=== PATIENT | female | born 1960 | race Caucasian/White ===

== ENCOUNTER 2016-07-20 09:27 | Observation (INO) ==
[2016-07-20] MEDS ORDERED: Naloxone 0.4 MG/ML INJ IVP PRN (11:09)
--- NOTE | 2016-07-20 12:41 | Internal Med History&Physical ---
Date of Encounter: 07/20/16 Time of Encounter: 12:39 Assessment and Plan (1) Cellulitis Current visit: No Status: Acute History of recurrent cellulitis given morbid obesity and chronic lymphedema. Has been started on IV vancomycin from [place], we will continue vancomycin and started on IV Zosyn empirically. Blood cultures and wound cultures has been sent, follow culture results. We will consult wound care, keep foot elevated. DVt prophylaxis. Qualifiers: Site of cellulitis: extremity Site of cellulitis of extremity: lower extremity Laterality: right Qualified Code(s): L03.115 - Cellulitis of right lower limb (2) Diabetes Current visit: No Status: Chronic will start on sliding correctional insulin Qualifiers: Diabetes mellitus type: type 2 Diabetes mellitus complication status: with kidney complications Diabetes mellitus complication detail: with chronic kidney disease Diabetes mellitus termite exterminator insulin use: unspecified long-term insulin use status Chronic kidney disease stage: stage 3 (moderate) Qualified Code(s): E11.22 - Type 2 diabetes mellitus with diabetic chronic kidney disease; N18.3 - Chronic kidney disease, stage 3 (moderate) (3) HTN (hypertension) Current visit: No Status: Chronic Continue home medication. Qualifiers: Hypertension type: essential hypertension Qualified Code(s): I10 - Essential (primary) hypertension (4) Morbid obesity Current visit: No Status: Chronic Qualifiers: Obesity type: due to excess calories Qualified Code(s): E66.01 - Morbid ( severe) obesity due to excess calories Internal Medicine - H&P: HPI Chief complaint: RIGHT LEG SWELLING AND REDNESS Admitted From: Intrahospital Transfer Plans for Post Hospital Care: Home History of present illness: Ms. Blanton is a 56 year old female was transferred from [facility] for right leg cellulitis. Patient has history of chronic lymphedema with swelling of the right leg and has multiple recurrent cellulitis with previous hospital admissions requiring IV antibiotics . Ms Blanton reports a 3 day history of increased pain and redness and swelling in her right leg. The leg is always swollen but it is a bit more so and at stuff only a brighter red and more painful. No obvious trauma to the leg. She suffers from chronic lymphedema. She has had some chills but no obvious fevers. No nausea or vomiting or muscle aches. She was seen at [place] and was started on vancomycin. She has history of positive wound cultures with staph epidermidis. She reports that she is normally mobile at baseline at home. Past Med Surg Social Fam HX - Past Medical History Medical history: COPD, diabetes, hyperlipidemia, hypertension, thyroid disease, other Psychiatric history: no psych history - Past Surgical History Surgical History: hysterectomy - Social History Smoking Status: Never smoker Smokeless Tobacco Status: No Alcohol use: none Drug use: none - Family History Mother Adopted: No Family Member Ethnicity: Non- Living Status: Hx Family Cardiac Disorders: Yes (Two stents) Hx Family Respiratory Disorders: Yes Hx Family Cancer: Yes Hx Family Endocrine Disorder: No Hx Family Neuromuscular Disorders: No Hx Family Neurologic Disorders: No Hx Family HEENT Disorders: No Hx Family Autoimmune Disorders: No Father Living Status: Hx Family Cardiac Disorders: Yes (HX TRIPLE BYPASS) Hx Family Respiratory Disorders: Yes Hx Family Endocrine Disorder: Yes Internal Medicine - H&P: Meds Carvedilol [Coreg] 6.25 mg PO BIDWM 01/22/15 [History] Cyanocobalamin (Vitamin B-12) [Vitamin B12] 1,000 mcg PO DAILY #0 01/22/15 [ History] Levothyroxine [Synthroid] 50 mcg PO DAILY 01/22/15 [History] Potassium Chloride [K-Tab ER] 10 meq PO DAILY #0 01/22/15 [History] Albuterol Sulfate [Proair Hfa] 2 puff IH Q6H PRN 11/12/15 [History] Allopurinol [Zyloprim 100 MG] 100 mg PO BID 11/12/15 [History] Ferrous Sulfate 325 mg PO TID 11/12/15 [History] Metformin [Glucophage] 1,000 mg PO BIDWM 01/29/16 [History] Butalb/Acetaminophen/Caffeine [Fioricet 50-300-40 mg Capsule] 1 each PO Q6HR PRN #10 capsule 03/15/16 [Rx] Atorvastatin [Lipitor] 10 mg PO DAILY 07/20/16 [History] Docusate [Colace] 100 mg PO DAILY PRN 07/20/16 [History] Furosemide [Lasix] 40 mg PO DAILY 07/20/16 [History] Allergies Hydromorphone [From Dilaudid] Allergy (Verified 03/14/16 23:13) Hallucinating All Systems PM: A 10-system review of systems was performed and is negative for pertinent findings except as documented above in the HPI. - Constitutional Constitutional: no chills, no fever(s), no night sweats - EENT Eyes: no change in vision, no discharge, no pain, no photophobia Ears: no ear discharge, no ear pain, no tinnitus Nose, mouth and throat: no dysphagia, no nasal discharge, no neck pain, no sore throat - Cardiovascular Cardiovascular ROS IM: no chest pain, no diaphoresis, no dyspnea, no lightheadedness, no palpitations, no syncope - Respiratory Respiratory: no cough, no dyspnea, no wheezing, no excessive phlegm production - Gastrointestinal Gastrointestinal: no abdominal pain, no diarrhea, no hematemesis, no hematochezia, no melena, no nausea, no vomiting - Genitourinary Genitourinary: no change in urinary stream, no dysuria, no flank pain, no hematuria - Musculoskeletal Musculoskeletal ROS IM: no numbness, no tingling - Constitutional General appearance: Present: A&O X 3, no acute distress Exam: Neck supple. Chest bilateral clear, no added sounds. CVS S1-S2, no murmurs rubs or gallops. Abdomen soft, nontender, bowel sounds are present. Extremities bilateral LOWER LEG SWELLING and redness, swelling and redness present on the right leg extending to the upper thigh and the medial aspect. Also has some open wounds WITH blisters, tenderness on palpation, pulses difficult to palpate due to swelling
[2016-07-20] MEDS ORDERED: Dextrose Gel 15 GM PO PRN ×2 (12:46)
[2016-07-20] MEDS ORDERED: D5% in Water 1,000 ML IVC PRN (12:46)
[2016-07-20] MEDS ORDERED: *HR* Dextrose 50 % in Water (Syg) 50 ML SYRINGE IVP PRN (12:46)
[2016-07-20] MEDS: Insulin LISPRO 300 UNITS/3 ML VIAL SQ SCH ×3 (14:32→21:14)
[2016-07-20] MEDS: Furosemide 40 MG/4 ML VIAL IVP SCH (14:32)
[2016-07-20] MEDS: Piperacillin/Tazobactam 3.375 GM in D5% in Water (Mini-Bag+) 100 ML IVPB SCH ×2 (14:33→17:35)
[2016-07-20] MEDS: *HR* Heparin 5,000 UNIT/ML VIAL SQ SCH (16:58)
[2016-07-20] MEDS ORDERED: Vancomycin 1,000 MG in D5% in Water 250 ML IVPB SCH (18:00)
[2016-07-20] MEDS: Acetaminophen 325 MG TABLET PO PRN (18:18)
[2016-07-20] MEDS: Vancomycin 2,000 MG in D5% in Water 500 ML IVPB SCH (23:20)
[2016-07-20] MEDS: Ipratropium/Albuterol Neb 3 ML IH PRN (23:43)
[2016-07-21] MEDS: Piperacillin/Tazobactam 3.375 GM in D5% in Water (Mini-Bag+) 100 ML IVPB SCH ×3 (01:44→15:58)
[2016-07-21] MEDS ORDERED: Dextromethorphan Polistrx(12h) 30 MG/5 ML UDC PO ONE (01:53)
[2016-07-21] MEDS ORDERED: Saline Nasal Spray 44 ML BOTTLE NS PRN (01:59)
[2016-07-21] MEDS: Fluticasone Propionate Nasal 50 MCG/SPRAY BOTTLE NS SCH ×2 (02:32→20:50)
[2016-07-21] MEDS: Benzonatate 100 MG CAPSULE PO PRN ×3 (02:57→22:49)
[2016-07-21 05:04] LABS: Basophils # 0.1 K/mcL (0.0-0.2); Basophils % 0.7 %; Eosinophils # 0.1 K/mcL (0.0-0.6); Eosinophils % 1.5 %; Hematocrit 28.5 % (35.3-44.9); Hemoglobin 8.9 g/dL (11.5-15.4); Immature Granulocytes % 3.9 % (0-4); Lymphocytes # 0.8 K/mcL (0.6-4.6); Lymphocytes % 10.8 %; Mean Corpuscular HGB Conc 31.2 g/dL (31.6-35.5); Mean Corpuscular Hemoglobin 26.8 pg (28.0-33.3); Mean Corpuscular Volume 85.8 fL (83.0-100.0); Mean Platelet Volume 9.2 fL (9.4-12.4); Monocytes # 1.1 K/mcL (0.0-1.3); Monocytes % 15.3 %; Neutrophils # 4.9 K/mcL (1.6-8.9); Nucleated Red Blood Cells 0.3 /100 WBC (0); Platelet Count 236 K/mcL (140-400); Red Blood Count 3.32 M/mcL (3.82-4.97); Red Cell Distribution Width 16.1 % (11.5-14.5); Segmented Neutrophils % 67.8 %
[2016-07-21 05:11] LABS: BUN/Creatinine Ratio 15 (6-26); Blood Urea Nitrogen 16 mg/dL (7-20); Carbon Dioxide 26 mEq/L (19-29); Chloride 97 mEq/L (98-109); Glucose 175 mg/dL (70-99); Osmolality,Calculated 283 (280-300); Potassium 3.4 mEq/L (3.5-4.5); Sodium 134 mEq/L (136-145); eGFR For African Americans > 60 (> 60); eGFR For Non-African Americans 51 (> 60)
[2016-07-21] MEDS: *HR* Heparin 5,000 UNIT/ML VIAL SQ SCH ×2 (06:11→17:38)
[2016-07-21] MEDS: Levothyroxine 25 MCG TABLET PO SCH (06:12)
[2016-07-21] MEDS: Furosemide 40 MG/4 ML VIAL IVP SCH (08:01)
[2016-07-21] MEDS: Insulin LISPRO 300 UNITS/3 ML VIAL SQ SCH ×4 (08:01→20:44)
[2016-07-21] MEDS: Acetaminophen 325 MG TABLET PO PRN ×2 (09:33→22:49)
[2016-07-21] MEDS: Vancomycin 2,000 MG in D5% in Water 500 ML IVPB SCH ×2 (12:14→23:41)
[2016-07-21] MEDS ORDERED: Baclofen 10 MG TABLET PO PRN (12:24)
--- NOTE | 2016-07-21 15:13 | Internal Med Progress Note ---
Date of Encounter: 07/21/16 Time of Encounter: 15:10 - Assessment and plan (1) Cellulitis Current Visit: Yes Status: Acute Assessment and plan: Cellulitis involving the Right lower extremity. On IV vancomycin and Zosyn. No significant improvement. Wound care. Foot elevation. Moderate risk for complications including sepsis. Qualifiers: Site of cellulitis: extremity Site of cellulitis of extremity: lower extremity Laterality: left Qualified Code(s): L03.116 - Cellulitis of left lower limb (2) Diabetes Current Visit: Yes Status: Chronic Assessment and plan: Blood sugars are slightly elevated. Will add long-acting insulin. Qualifiers: Diabetes mellitus type: type 2 Diabetes mellitus complication status: with kidney complications Diabetes mellitus complication detail: with chronic kidney disease Diabetes mellitus intermediate frame tender insulin use: unspecified half-way insulin use status Chronic kidney disease stage: stage 3 (moderate) Qualified Code(s): E11.22 - Type 2 diabetes mellitus with diabetic chronic kidney disease; N18.3 - Chronic kidney disease, stage 3 (moderate) (3) HTN (hypertension) Current Visit: Yes Status: Chronic Assessment and plan: On carvedilol. Blood pressure was elevated this morning. Improving now. Qualifiers: Hypertension type: essential hypertension Qualified Code(s): I10 - Essential (primary) hypertension (4) Morbid obesity Current Visit: No Status: Chronic Qualifiers: Obesity type: due to excess calories Qualified Code(s): E66.01 - Morbid ( severe) obesity due to excess calories - Subjective Interval history: Patient continues to have redness and swelling in her right lower extremity with increased blisters formation. Had low-grade fever with a MAXIMUM TEMPERATURE of 100 last night. - Constitutional Vitals: Temp Pulse Resp BP Pulse Ox 99.0 F 86 18 137/72 94 07/21/16 11:45 07/21/16 11:45 07/21/16 11:45 07/21/16 11:45 07/21/16 11:45 General appearance: Present: cooperative, A&O X 3, morbidly obese, no acute distress, answers questions appropriately - Neck Neck exam general surgery: Present: supple, trachea midline. Absent: lymphadenopathy - Respiratory Respiratory exam: Present: CTAB. Absent: accessory muscle use, rales, rhonchi, wheezes - Cardiovascular Cardiovascular exam: Present: RRR, +S1, +S2. Absent: diastolic murmur, gallop, rubs, systolic murmur - GI/Abdominal GI/Abdominal exam: Present: normal bowel sounds, soft, no peritoneal signs. Absent: distended, tenderness - Extremities Exam Extremities exam: Present: warm, radial pulses palpable and symetrical. Absent : calf tenderness, cyanotic, pedal edema Additional comments: Circumferential cellulitis involving the right lower extremity with multiple blisters extending from the foot up to the knee on the right side. There is also erythema involving the posterior surface of the right thigh. - Neurological Exam Neurological exam: Present: alert, CN II-XII intact, oriented X3, no focal deficits. Absent: facial droop, speech deficit - Skin Skin exam: Present: dry, erythema (As described above), intact Internal Medicine: Result - Labs CBC & Chem 7: 07/21/16 04:44 07/21/16 04:44 Labs: Short CBC 07/21/16 Range/Units 04:44 WBC 7.2 (4.3-11.1) K/mcL Hgb 8.9 L (11.5-15.4) g/dL Hct 28.5 L (35.3-44.9) % Plt Count 236 (140-400) K/mcL Neutrophils # 4.9 (1.6-8.9) K/mcL BMP 07/21/16 04:44 Sodium 134 L Potassium 3.4 L Chloride 97 L Carbon Dioxide 26 BUN 16 Creatinine 1.10 Glucose 175 H Calcium 9.0 Consult Discharge Plan - Plan Referrals: NO,PCP [Primary Care Provider] - - Attending Attestation This document has been at least partially created by Subtext recognition technology by Dr. Hinds. Errors in grammar, wording or other phrases may exist. If errors are found after the documentation is signed, they will be addressed individually in the addendum section of this document when appropriate.
[2016-07-21] MEDS ORDERED: Insulin DETEMIR 100 UNIT/ML X5UNITS SQ SCH (21:00)
[2016-07-22] MEDS: Piperacillin/Tazobactam 3.375 GM in D5% in Water (Mini-Bag+) 100 ML IVPB SCH ×4 (00:22→23:52)
[2016-07-22] MEDS ORDERED: Ketorolac 30 MG/ML VIAL IVP ONE (02:54)
[2016-07-22 05:18] LABS: Basophils # 0.1 K/mcL (0.0-0.2); Basophils % 1.1 %; Eosinophils # 0.1 K/mcL (0.0-0.6); Eosinophils % 1.8 %; Hematocrit 30.8 % (35.3-44.9); Hemoglobin 9.2 g/dL (11.5-15.4); Immature Granulocytes % 5.9 % (0-4); Lymphocytes # 0.9 K/mcL (0.6-4.6); Lymphocytes % 12.9 %; Mean Corpuscular HGB Conc 29.9 g/dL (31.6-35.5); Mean Corpuscular Hemoglobin 26.1 pg (28.0-33.3); Mean Corpuscular Volume 87.5 fL (83.0-100.0); Mean Platelet Volume 9.3 fL (9.4-12.4); Monocytes # 0.8 K/mcL (0.0-1.3); Monocytes % 11.5 %; Neutrophils # 4.4 K/mcL (1.6-8.9); Nucleated Red Blood Cells 0.3 /100 WBC (0); Platelet Count 284 K/mcL (140-400); Red Blood Count 3.52 M/mcL (3.82-4.97); Red Cell Distribution Width 16.1 % (11.5-14.5); Segmented Neutrophils % 66.8 %
[2016-07-22 05:23] LABS: BUN/Creatinine Ratio 16 (6-26); Blood Urea Nitrogen 17 mg/dL (7-20); Carbon Dioxide 30 mEq/L (19-29); Chloride 99 mEq/L (98-109); Glucose 143 mg/dL (70-99); Osmolality,Calculated 288 (280-300); Potassium 3.3 mEq/L (3.5-4.5); Sodium 137 mEq/L (136-145); eGFR For African Americans > 60 (> 60); eGFR For Non-African Americans 53 (> 60)
[2016-07-22] MEDS: *HR* Heparin 5,000 UNIT/ML VIAL SQ SCH ×2 (05:36→17:31)
[2016-07-22] MEDS: Levothyroxine 25 MCG TABLET PO SCH (05:36)
[2016-07-22 05:50] LABS: Platelet Estimate Normal (Normal)
[2016-07-22] MEDS: Insulin LISPRO 300 UNITS/3 ML VIAL SQ SCH ×4 (08:39→20:41)
[2016-07-22] MEDS: Furosemide 40 MG/4 ML VIAL IVP SCH (08:40)
[2016-07-22] MEDS: Acetaminophen 325 MG TABLET PO PRN ×2 (10:40→18:23)
[2016-07-22] MEDS: Vancomycin 1,750 MG in D5% in Water 500 ML IVPB SCH (14:53)
--- NOTE | 2016-07-22 15:06 | Internal Med Progress Note ---
Date of Encounter: 07/22/16 Time of Encounter: 10:15 - Assessment and plan (1) Cellulitis Current Visit: Yes Status: Acute Assessment and plan: Clinically improving. Continue IV antibiotics. Wound care consult appreciated. We will follow recommendations. Moderate risk for complications. Qualifiers: Site of cellulitis: extremity Site of cellulitis of extremity: lower extremity Laterality: left Qualified Code(s): L03.116 - Cellulitis of left lower limb (2) Diabetes Current Visit: Yes Status: Chronic Assessment and plan: Improving control. Will increase Levemir dosage to 10 units Qualifiers: Diabetes mellitus type: type 2 Diabetes mellitus complication status: with kidney complications Diabetes mellitus complication detail: with chronic kidney disease Diabetes mellitus adjunct faculty for medical terminology insulin use: unspecified correction insulin use status Chronic kidney disease stage: stage 3 (moderate) Qualified Code(s): E11.22 - Type 2 diabetes mellitus with diabetic chronic kidney disease; N18.3 - Chronic kidney disease, stage 3 (moderate) (3) HTN (hypertension) Current Visit: Yes Status: Chronic Assessment and plan: Blood pressure is elevated intermittently. On carvedilol and Lasix. If this persists, will increase carvedilol dosage Qualifiers: Hypertension type: essential hypertension Qualified Code(s): I10 - Essential (primary) hypertension (4) Morbid obesity Current Visit: No Status: Chronic Qualifiers: Obesity type: due to excess calories Qualified Code(s): E66.01 - Morbid ( severe) obesity due to excess calories - Subjective Interval history: Patient feels her cellulitis is improving today. She has not had any fever overnight. Her pain is improving and the right lower extremity. No nausea or vomiting. No adverse reaction to antibiotics the patient is receiving. - Constitutional Vitals: Temp Pulse Resp BP Pulse Ox 98.3 F 94 18 154/78 95 07/22/16 14:29 07/22/16 14:29 07/22/16 14:29 07/22/16 14:29 07/22/16 14:29 General appearance: Present: cooperative, A&O X 3, morbidly obese, no acute distress, answers questions appropriately - Respiratory Respiratory exam: Present: CTAB. Absent: accessory muscle use, rales, rhonchi, wheezes - Cardiovascular Cardiovascular exam: Present: RRR, +S1, +S2. Absent: diastolic murmur, gallop, rubs, systolic murmur - GI/Abdominal GI/Abdominal exam: Present: normal bowel sounds, soft, no peritoneal signs. Absent: distended, tenderness - Extremities Exam Extremities exam: Present: warm, radial pulses palpable and symetrical. Absent : calf tenderness, cyanotic, pedal edema Additional comments: right lower extremity cellulitis slightly improved especially in the right foot. Blisters appear to be somewhat more organized and decreasing in size. Cellulitis involving the right posterior thigh appears to be stable - Neurological Exam Neurological exam: Present: alert, oriented X3, no focal deficits. Absent: facial droop, speech deficit - Skin Skin exam: Present: dry, intact Internal Medicine: Result - Labs CBC & Chem 7: 07/22/16 03:54 07/22/16 03:54 Labs: Short CBC 07/22/16 Range/Units 03:54 WBC 6.6 (4.3-11.1) K/mcL Hgb 9.2 L (11.5-15.4) g/dL Hct 30.8 L (35.3-44.9) % Plt Count 284 (140-400) K/mcL Neutrophils # 4.4 (1.6-8.9) K/mcL BMP 07/22/16 03:54 Sodium 137 Potassium 3.3 L Chloride 99 Carbon Dioxide 30 H BUN 17 Creatinine 1.07 Glucose 143 H Calcium 9.0 Consult Discharge Plan - Plan Referrals: NO,PCP [Primary Care Provider] - - Attending Attestation This document has been at least partially created by [email or web address] recognition technology by Dr. Hinds. Errors in grammar, wording or other phrases may exist. If errors are found after the documentation is signed, they will be addressed individually in the addendum section of this document when appropriate.
[2016-07-22] MEDS: Insulin DETEMIR 100 UNIT/ML X5UNITS SQ SCH (20:40)
[2016-07-22] MEDS: Fluticasone Propionate Nasal 50 MCG/SPRAY BOTTLE NS SCH (20:41)
[2016-07-22] MEDS: Benzonatate 100 MG CAPSULE PO PRN (23:51)
[2016-07-23 02:50] LABS: Adenovirus Not Detected (Not Detect); Bordetella Pertussis Not Detected (Not Detect); Chlamydophila pneumoniae Not Detected (Not Detect); Coronavirus 229E Not Detected (Not Detect); Coronavirus HKU1 Not Detected (Not Detect); Coronavirus NL63 Not Detected (Not Detect); Coronavirus OC43 Not Detected (Not Detect); Human Metapneumovirus Not Detected (Not Detect); Human Rhinovirus/Enterovirus Not Detected (Not Detect); Influenza A Subtype 2009 H1 Not Detected (Not Detect); Influenza A Untypeable Not Detected (Not Detect); Influenza B ***DETECTED*** (Not Detect); Mycoplasma pneumoniae Not Detected (Not Detect); Parainfluenza Virus 1 Not Detected (Not Detect); Parainfluenza Virus 2 Not Detected (Not Detect); Parainfluenza Virus 3 Not Detected (Not Detect); Parainfluenza Virus 4 Not Detected (Not Detect); Respiratory Syncytial Virus Not Detected (Not Detect)
[2016-07-23 03:04] LABS: Eosinophils # 0.2 K/mcL (0.0-0.6); Hematocrit 31.2 % (35.3-44.9); Hemoglobin 9.4 g/dL (11.5-15.4); Mean Corpuscular HGB Conc 30.1 g/dL (31.6-35.5); Mean Corpuscular Hemoglobin 26.5 pg (28.0-33.3); Mean Corpuscular Volume 87.9 fL (83.0-100.0); Mean Platelet Volume 8.9 fL (9.4-12.4); Nucleated Red Blood Cells 0.5 /100 WBC (0); Platelet Count 296 K/mcL (140-400); Red Blood Count 3.55 M/mcL (3.82-4.97); Red Cell Distribution Width 16.2 % (11.5-14.5)
[2016-07-23 03:15] LABS: BUN/Creatinine Ratio 18 (6-26); Blood Urea Nitrogen 19 mg/dL (7-20); Calcium 9.1 mg/dL (8.6-10.8); Carbon Dioxide 31 mEq/L (19-29); Chloride 99 mEq/L (98-109); Glucose 173 mg/dL (70-99); Osmolality,Calculated 292 (280-300); Potassium 3.8 mEq/L (3.5-4.5); Sodium 138 mEq/L (136-145); eGFR For African Americans > 60 (> 60); eGFR For Non-African Americans 54 (> 60)
[2016-07-23 04:24] LABS: Lymphocytes # 0.8 K/mcL (0.6-4.6); Monocytes # 0.7 K/mcL (0.0-1.3); Neutrophils # 4.1 K/mcL (1.6-8.9)
[2016-07-23 04:25] LABS: Platelet Estimate Normal (Normal)
[2016-07-23] MEDS: *HR* Heparin 5,000 UNIT/ML VIAL SQ SCH ×2 (06:45→18:09)
[2016-07-23] MEDS: Levothyroxine 25 MCG TABLET PO SCH (06:45)
--- NOTE | 2016-07-23 09:53 | Internal Med Progress Note ---
Date of Encounter: 07/23/16 Time of Encounter: 09:20 - Assessment and plan (1) Cellulitis Current Visit: Yes Status: Acute Assessment and plan: Continue current antibiotics and local wound care. Clinically getting better. Moderate risk for complications. Qualifiers: Site of cellulitis: extremity Site of cellulitis of extremity: lower extremity Laterality: left Qualified Code(s): L03.116 - Cellulitis of left lower limb (2) Diabetes Current Visit: Yes Status: Chronic Assessment and plan: Fairly controlled. No changes in insulin regimen at this time. Qualifiers: Diabetes mellitus type: type 2 Diabetes mellitus complication status: with kidney complications Diabetes mellitus complication detail: with chronic kidney disease Diabetes mellitus exterminator termite insulin use: unspecified fpc insulin use status Chronic kidney disease stage: stage 3 (moderate) Qualified Code(s): E11.22 - Type 2 diabetes mellitus with diabetic chronic kidney disease; N18.3 - Chronic kidney disease, stage 3 (moderate) (3) HTN (hypertension) Current Visit: Yes Status: Chronic Assessment and plan: Blood pressure is well controlled. Qualifiers: Hypertension type: essential hypertension Qualified Code(s): I10 - Essential (primary) hypertension (4) Morbid obesity Current Visit: No Status: Chronic Qualifiers: Obesity type: due to excess calories Qualified Code(s): E66.01 - Morbid ( severe) obesity due to excess calories (5) Influenza B Current Visit: Yes Status: Acute Assessment and plan: Patient has positive influenza B. She has been started on Tamiflu overnight. We will continue the same to complete treatment course. - Subjective Interval history: Currently sitting up in chair. Continues to have cough. Concerned that her blisters do not seem to be improving much. Reports no fever or chills or night sweats. - Constitutional Vitals: Temp Pulse Resp BP Pulse Ox 98.5 F 90 20 130/69 93 07/23/16 06:27 07/23/16 06:27 07/23/16 06:27 07/23/16 06:27 07/23/16 06:27 General appearance: Present: cooperative, A&O X 3, morbidly obese, no acute distress, answers questions appropriately - Respiratory Respiratory exam: Present: CTAB. Absent: accessory muscle use, rales, rhonchi, wheezes - Cardiovascular Cardiovascular exam: Present: RRR, +S1, +S2. Absent: diastolic murmur, gallop, rubs, systolic murmur - GI/Abdominal GI/Abdominal exam: Present: normal bowel sounds, soft, no peritoneal signs. Absent: distended, tenderness - Extremities Exam Extremities exam: Present: warm, radial pulses palpable and symetrical. Absent : calf tenderness, cyanotic, pedal edema Additional comments: Right lower extremity cellulitis continues to improve. Erythema is less prominent right now. Patient's blisters remain stable and does not appear that the patient is developing any new blisters. Stasis dermatitis and lymphedema present in the left lower extremity - Neurological Exam Neurological exam: Present: alert, oriented X3, no focal deficits. Absent: facial droop, speech deficit Internal Medicine: Result - Labs CBC & Chem 7: 07/23/16 01:59 07/23/16 01:59 Labs: Short CBC 07/23/16 Range/Units 01:59 WBC 5.9 (4.3-11.1) K/mcL Hgb 9.4 L (11.5-15.4) g/dL Hct 31.2 L (35.3-44.9) % Plt Count 296 (140-400) K/mcL Neutrophils # 4.1 (1.6-8.9) K/mcL BMP 07/23/16 01:59 Sodium 138 Potassium 3.8 Chloride 99 Carbon Dioxide 31 H BUN 19 Creatinine 1.05 Glucose 173 H Calcium 9.1 Consult Discharge Plan - Plan Referrals: NO,PCP [Primary Care Provider] - - Attending Attestation This document has been at least partially created by [employer] recognition technology by Dr. Hinds. Errors in grammar, wording or other phrases may exist. If errors are found after the documentation is signed, they will be addressed individually in the addendum section of this document when appropriate.
[2016-07-23] MEDS: Furosemide 40 MG/4 ML VIAL IVP SCH (10:21)
[2016-07-23] MEDS: Piperacillin/Tazobactam 3.375 GM in D5% in Water (Mini-Bag+) 100 ML IVPB SCH ×2 (10:21→18:08)
[2016-07-23] MEDS: Insulin LISPRO 300 UNITS/3 ML VIAL SQ SCH ×4 (10:22→20:32)
[2016-07-23] MEDS: Vancomycin 1,750 MG in D5% in Water 500 ML IVPB SCH (15:16)
[2016-07-23] MEDS: Acetaminophen 325 MG TABLET PO PRN (15:49)
[2016-07-23] MEDS: Ipratropium/Albuterol Neb 3 ML IH PRN (16:03)
[2016-07-23] MEDS: Benzonatate 100 MG CAPSULE PO PRN (18:09)
[2016-07-23] MEDS: Fluticasone Propionate Nasal 50 MCG/SPRAY BOTTLE NS SCH (20:32)
[2016-07-23] MEDS: Insulin DETEMIR 100 UNIT/ML X5UNITS SQ SCH (20:33)
[2016-07-24] MEDS: Piperacillin/Tazobactam 3.375 GM in D5% in Water (Mini-Bag+) 100 ML IVPB SCH ×4 (00:34→23:30)
[2016-07-24] MEDS: Levothyroxine 25 MCG TABLET PO SCH (05:54)
[2016-07-24] MEDS: *HR* Heparin 5,000 UNIT/ML VIAL SQ SCH ×2 (05:54→16:37)
[2016-07-24] MEDS: Furosemide 40 MG/4 ML VIAL IVP SCH (08:13)
[2016-07-24] MEDS: Insulin LISPRO 300 UNITS/3 ML VIAL SQ SCH ×4 (08:17→20:03)
[2016-07-24] MEDS: Benzonatate 100 MG CAPSULE PO PRN (10:34)
--- NOTE | 2016-07-24 12:59 | Internal Med Progress Note ---
Date of Encounter: 07/24/16 Time of Encounter: 08:45 - Assessment and plan (1) Cellulitis Current Visit: Yes Status: Acute Assessment and plan: Continue current antibiotics. Clinically getting better. Wound care. Leg elevation. Physical therapy evaluated patient and recommended placement to skilled rehabilitation. sawmill worker working on placement. Qualifiers: Site of cellulitis: extremity Site of cellulitis of extremity: lower extremity Laterality: left Qualified Code(s): L03.116 - Cellulitis of left lower limb (2) Diabetes Current Visit: Yes Status: Chronic Assessment and plan: Better controlled. Continue current insulin regimen. Qualifiers: Diabetes mellitus type: type 2 Diabetes mellitus complication status: with kidney complications Diabetes mellitus complication detail: with chronic kidney disease Diabetes mellitus correction insulin use: unspecified correction insulin use status Chronic kidney disease stage: stage 3 (moderate) Qualified Code(s): E11.22 - Type 2 diabetes mellitus with diabetic chronic kidney disease; N18.3 - Chronic kidney disease, stage 3 (moderate) (3) HTN (hypertension) Current Visit: Yes Status: Chronic Assessment and plan: Blood pressure is well controlled Qualifiers: Hypertension type: essential hypertension Qualified Code(s): I10 - Essential (primary) hypertension (4) Morbid obesity Current Visit: No Status: Chronic Qualifiers: Obesity type: due to excess calories Qualified Code(s): E66.01 - Morbid ( severe) obesity due to excess calories (5) Influenza B Current Visit: Yes Status: Acute Assessment and plan: On Tamiflu. - Subjective Interval history: Continues to have cough without any sputum production. Redness in right lower extremity is improving Still has blisters. - Constitutional Vitals: Temp Pulse Resp BP Pulse Ox 100.4 F H 84 18 127/61 94 07/24/16 11:41 07/24/16 11:41 07/24/16 11:41 07/24/16 11:41 07/24/16 11:41 General appearance: Present: cooperative, A&O X 3, morbidly obese, no acute distress, answers questions appropriately - Respiratory Respiratory exam: Present: CTAB. Absent: accessory muscle use, rales, rhonchi, wheezes - Cardiovascular Cardiovascular exam: Present: RRR, +S1, +S2. Absent: diastolic murmur, gallop, rubs, systolic murmur - GI/Abdominal GI/Abdominal exam: Present: normal bowel sounds, soft, no peritoneal signs. Absent: distended, tenderness - Extremities Exam Extremities exam: Present: pedal edema, warm, radial pulses palpable and symetrical. Absent: calf tenderness, cyanotic Additional comments: Erythema and lymphedema involving both lower extremities. Cellulitis improving the right lower extremity with blisters still present but no new ones developing. - Neurological Exam Neurological exam: Present: CN II-XII intact, oriented X3, no focal deficits. Absent: facial droop, speech deficit Internal Medicine: Result - Labs CBC & Chem 7: 07/23/16 01:59 07/23/16 01:59 Consult Discharge Plan - Plan Referrals: NO,PCP [Non-Partnered Physician] - - Attending Attestation This document has been at least partially created by [employer] recognition technology by Dr. Hinds. Errors in grammar, wording or other phrases may exist. If errors are found after the documentation is signed, they will be addressed individually in the addendum section of this document when appropriate.
[2016-07-24] MEDS: Vancomycin 1,750 MG in D5% in Water 500 ML IVPB SCH (14:51)
[2016-07-24] MEDS: Ipratropium/Albuterol Neb 3 ML IH PRN ×3 (15:14→23:20)
[2016-07-24] MEDS: GuaiFENesin Liq 200 MG/10 ML UDC PO SCH ×2 (16:36→23:30)
[2016-07-24] MEDS ORDERED: Levalbuterol Neb 1.25 MG/3 ML IH SCH (20:00)
[2016-07-24] MEDS: Insulin DETEMIR 100 UNIT/ML X5UNITS SQ SCH (20:10)
[2016-07-24] MEDS: Fluticasone Propionate Nasal 50 MCG/SPRAY BOTTLE NS SCH (20:10)
[2016-07-24 20:50] LABS: ABG Base Excess 6.8 mEq/L (-2.0 to 3.0); ABG HCO3 34.5 mEQ/L (21-27); ABG Oxygen Saturation 93 % (95-98); ABG PCO2 67 mmHg (35-45); ABG PH 7.32 pH Units (7.32-7.45); ABG PO2 74 mmHg (85-104); ABG TCO2 36.6 mEq/L (20-26); Blood Gas FiO2 32 %
[2016-07-24 20:50] LABS: Magnesium 1.8 mg/dL (1.6-2.6); Phosphorous 2.5 mg/dL (2.3-4.7)
[2016-07-24] MEDS ORDERED: Magnesium Sulfate 1 GM in D5% in Water 100 ML IVPB ONE (21:04)
[2016-07-24] MEDS ORDERED: Calcium Gluconate 1,000 MG in D5% in Water 100 ML IVPB ONE (21:05)
[2016-07-24] MEDS: Levalbuterol Neb 1.25 MG/3 ML IH SCH ×2 (21:59→23:20)
[2016-07-24] MEDS: Ipratropium Neb 0.5 MG NEBULIZER IH SCH ×2 (21:59→23:20)
[2016-07-24] MEDS: methylPREDNISolone 125 MG/2 ML VIAL IVP SCH (23:30)
[2016-07-25] MEDS ORDERED: methylPREDNISolone 125 MG/2 ML VIAL IVP SCH
[2016-07-25] MEDS: *HR* Heparin 5,000 UNIT/ML VIAL SQ SCH (05:02)
[2016-07-25] MEDS: GuaiFENesin Liq 200 MG/10 ML UDC PO SCH ×2 (05:02→11:59)
[2016-07-25] MEDS: Benzonatate 100 MG CAPSULE PO PRN (05:02)
[2016-07-25] MEDS: Levothyroxine 25 MCG TABLET PO SCH (05:02)
[2016-07-25] MEDS: Ipratropium Neb 0.5 MG NEBULIZER IH SCH ×3 (05:13→11:50)
[2016-07-25] MEDS: Levalbuterol Neb 1.25 MG/3 ML IH SCH ×3 (05:13→11:51)
[2016-07-25 07:01] VITALS: BP 159/77
[2016-07-25] MEDS: Insulin LISPRO 300 UNITS/3 ML VIAL SQ SCH ×2 (08:16→11:59)
[2016-07-25] MEDS: methylPREDNISolone 125 MG/2 ML VIAL IVP SCH (08:20)
[2016-07-25] MEDS: Piperacillin/Tazobactam 3.375 GM in D5% in Water (Mini-Bag+) 100 ML IVPB SCH (08:21)
[2016-07-25] MEDS: Furosemide 40 MG/4 ML VIAL IVP SCH (08:22)
--- NOTE | 2016-07-25 09:46 | Discharge Summary ---
Date of Encounter: 07/25/16 Time of Encounter: 08:20 - Discharge Diagnosis (1) Cellulitis Priority: Primary Status: Acute Qualifiers: Site of cellulitis: extremity Site of cellulitis of extremity: lower extremity Laterality: left Qualified Code(s): L03.116 - Cellulitis of left lower limb (2) Diabetes Priority: Secondary Status: Chronic Qualifiers: Diabetes mellitus type: type 2 Diabetes mellitus complication status: with kidney complications Diabetes mellitus complication detail: with chronic kidney disease Diabetes mellitus ad terminal makeup operator insulin use: unspecified ad terminal makeup operator insulin use status Chronic kidney disease stage: stage 3 (moderate) Qualified Code(s): E11.22 - Type 2 diabetes mellitus with diabetic chronic kidney disease; N18.3 - Chronic kidney disease, stage 3 (moderate) (3) HTN (hypertension) Priority: Secondary Status: Chronic Qualifiers: Hypertension type: essential hypertension Qualified Code(s): I10 - Essential (primary) hypertension (4) Morbid obesity Priority: Secondary Status: Chronic Qualifiers: Obesity type: due to excess calories Qualified Code(s): E66.01 - Morbid ( severe) obesity due to excess calories (5) Influenza B Priority: Secondary Status: Acute (6) COPD (chronic obstructive pulmonary disease) Priority: Secondary Status: Acute Qualifiers: COPD type: chronic bronchitis Chronic bronchitis type: simple Qualified Code(s): J41.0 - Simple chronic bronchitis - Discharge Medications Prescriptions: Butalb/Acetaminophen/Caffeine [Fioricet 50-300-40 mg Capsule] 1 each PO Q6HR PRN #10 capsule PRN Reason: Headache GuaiFENesin Liq [Robitussin Liq] 10 ml PO Q6HR PRN #200 mls PRN Reason: Cough Budesonide/Formoterol 80/4.5 [Symbicort 80/4.5] 1 puff IH BID #1 hfa.aer.ad Carvedilol 12.5 mg PO BID #60 tab Oseltamivir [Tamiflu] 75 mg PO BID #5 capsule Sulfamethoxazole/Trimeth DS [Bactrim DS] 1 each PO BID #20 tablet Home Medications: Cyanocobalamin (Vitamin B-12) [Vitamin B12] 1,000 mcg PO DAILY #0 01/22/15 [ History] Levothyroxine [Synthroid] 50 mcg PO DAILY 01/22/15 [History] Potassium Chloride [K-Tab ER] 10 meq PO DAILY #0 01/22/15 [History] Albuterol Sulfate [Proair Hfa] 2 puff IH Q6H PRN 11/12/15 [History] Allopurinol [Zyloprim 100 MG] 100 mg PO BID 11/12/15 [History] Ferrous Sulfate 325 mg PO TID 11/12/15 [History] Metformin [Glucophage] 1,000 mg PO BIDWM 01/29/16 [History] Atorvastatin [Lipitor] 10 mg PO DAILY 07/20/16 [History] Docusate [Colace] 100 mg PO DAILY PRN 07/20/16 [History] Furosemide [Lasix] 40 mg PO DAILY 07/20/16 [History] Budesonide/Formoterol 80/4.5 [Symbicort 80/4.5] 1 puff IH BID #1 hfa.aer.ad [Rx] Butalb/Acetaminophen/Caffeine [Fioricet 50-300-40 mg Capsule] 1 each PO Q6HR PRN #10 capsule 07/25/16 [Rx] Carvedilol 12.5 mg PO BID #60 tab 07/25/16 [Rx] GuaiFENesin Liq [Robitussin Liq] 10 ml PO Q6HR PRN #200 mls 07/25/16 [Rx] Oseltamivir [Tamiflu] 75 mg PO BID #5 capsule 07/25/16 [Rx] Sulfamethoxazole/Trimeth DS [Bactrim DS] 1 each PO BID #20 tablet 07/25/16 [Rx] Allergies/Adverse Reactions: Allergies Hydromorphone [From Dilaudid] Allergy (Verified 03/14/16 23:13) Hallucinating Date of admission: 07/20/16 11:09 Primary care physician: Hui Duke Consults: 07/20/16 11:10 Consult to Occupational Therapy [CONS] Routine Comment: Evaluate, develop and implement POC Consult to Physical Therapy [CONS] Routine Comment: Evaluate, develop and implement POC 07/20/16 12:14 Consult to Wound Care [CONS] Routine Reason for Consult: Lympedema, cellulitis, and blister to right leg. Call Completed: No 07/21/16 12:08 Consult to Pastoral Services [CONS] Routine Comment: Consult to Dough Molder [CONS] Routine Reason for SW Consult: discharge planning Discharging clinician: Edil Hinds Anticipated date of discharge: 07/25/16 - Patient Status Disposition: Home Health Service Condition: Fair Functional capacity at discharge: uses cane/walker Overall status at discharge: patient is progressing back to baseline - Discharge Instructions Instructions: Cellulitis (DC) Follow Up With: NO,PCP [Non-Partnered Physician] - (In 1-2 weeks with PCP) Additional Instructions: Follow up with wound clinic in 2 weeks - Diet and Activity Activity: as per physical therapy Diet: diabetic diet, low fat, low cholesterol, low salt diet Hospital course: Ms. Blanton is a 56 year old female with history of hypertension, diabetes mellitus and morbid obesity was admitted here with cellulitis involving her right lower extremity. She was treated for this with IV antibiotics. She has bilateral chronic lymphedema with stasis dermatitis changes. She has had multiple episodes of cellulitis before. She developed blisters on her right leg which are now decreasing in size. She was also treated with intravenous Lasix. Wound care team was also consulted and their recommendations have been followed. Presently she is doing much better with cellulitis mostly improving. She is stable to be discharged on oral antibiotics. She is also developed acute bronchitis from chronic bronchitis related to influenza B. She was started on Tamiflu for this and will complete a 5 day treatment course. She developed shortness of breath related to her bronchitis/ COPD. She was treated for that with bronchodilator nebs and IV steroids yesterday. She is already doing much better. She does not require its tapering course of steroids at this time. She is now stable to be discharged and will be discharged home with home health. Her blood pressure has been elevated here and I am increasing her carvedilol dosage to 12.5 mg by mouth twice daily. - Time Spent with Patient Total time spent providing and/or coordinating discharge services: Greater than 30 minutes (45 min) - Constitutional Vitals: Temp Pulse Resp BP Pulse Ox 97.5 F L 83 18 159/77 92 07/25/16 06:52 07/25/16 06:52 07/25/16 07:48 07/25/16 06:52 07/25/16 07:48 General appearance: Present: cooperative, A&O X 3, morbidly obese, no acute distress, answers questions appropriately - Respiratory Respiratory exam: Present: CTAB. Absent: accessory muscle use, rales, rhonchi, wheezes - Cardiovascular Cardiovascular exam: Present: RRR, +S1, +S2. Absent: diastolic murmur, gallop, rubs, systolic murmur - GI/Abdominal GI/Abdominal exam: Present: normal bowel sounds, soft, no peritoneal signs. Absent: distended, tenderness - Extremities Exam Extremities exam: Present: warm, radial pulses palpable and symetrical. Absent : calf tenderness, cyanotic, pedal edema Additional comments: Bilateral lymphedema with stasis dermatitis changes. Blisters are present on the right lower extremity stable with no new ones forming. Some of them are open and weeping. No signs of wound infection. - Attending Attestation This document has been at least partially created by [employer] recognition technology by Dr. Hinsd. Errors in grammar, wording or other phrases may exist. If errors are found after the documentation is signed, they will be addressed individually in the addendum section of this document when appropriate.
--- NOTE | 2016-07-25 09:59 | Physician Discharge Referral ---
ExtendedCare Referral Info Transfer To: SNF Provider in Charge after Transfer: PCP Institutional Level of Care: Skilled - Diagnosis (1) Cellulitis Priority: Primary Status: Acute (2) Diabetes Priority: Secondary Status: Chronic (3) HTN (hypertension) Priority: Secondary Status: Chronic (4) Morbid obesity Priority: Secondary Status: Chronic (5) Influenza B Priority: Secondary Status: Acute (6) COPD (chronic obstructive pulmonary disease) Priority: Secondary Status: Acute - Transfer Medications Prescriptions: Butalb/Acetaminophen/Caffeine [Fioricet 50-300-40 mg Capsule] 1 each PO Q6HR PRN #10 capsule PRN Reason: Headache Budesonide/Formoterol 80/4.5 [Symbicort 80/4.5] 1 puff IH BID #1 hfa.aer.ad Carvedilol 12.5 mg PO BID #60 tab Oseltamivir [Tamiflu] 75 mg PO BID #5 capsule Sulfamethoxazole/Trimeth DS [Bactrim DS] 1 each PO BID #20 tablet Home Medications: Cyanocobalamin (Vitamin B-12) [Vitamin B12] 1,000 mcg PO DAILY #0 01/22/15 [ History] Levothyroxine [Synthroid] 50 mcg PO DAILY 01/22/15 [History] Potassium Chloride [K-Tab ER] 10 meq PO DAILY #0 01/22/15 [History] Albuterol Sulfate [Proair Hfa] 2 puff IH Q6H PRN 11/12/15 [History] Allopurinol [Zyloprim 100 MG] 100 mg PO BID 11/12/15 [History] Ferrous Sulfate 325 mg PO TID 11/12/15 [History] Metformin [Glucophage] 1,000 mg PO BIDWM 01/29/16 [History] Atorvastatin [Lipitor] 10 mg PO DAILY 07/20/16 [History] Docusate [Colace] 100 mg PO DAILY PRN 07/20/16 [History] Furosemide [Lasix] 40 mg PO DAILY 07/20/16 [History] Budesonide/Formoterol 80/4.5 [Symbicort 80/4.5] 1 puff IH BID #1 hfa.aer.ad [Rx] Butalb/Acetaminophen/Caffeine [Fioricet 50-300-40 mg Capsule] 1 each PO Q6HR PRN #10 capsule 07/25/16 [Rx] Carvedilol 12.5 mg PO BID #60 tab 07/25/16 [Rx] GuaiFENesin Liq [Robitussin Liq] 200 mg PO Q6HR PRN udc 07/25/16 [Rx] Ipratropium/Albuterol Neb [Duoneb] 3 ml IH Q2H PRN #0 inhsol 07/25/16 [Rx] Oseltamivir [Tamiflu] 75 mg PO BID #5 capsule 07/25/16 [Rx] Sulfamethoxazole/Trimeth DS [Bactrim DS] 1 each PO BID #20 tablet 07/25/16 [Rx] Allergies/Adverse Reactions: Allergies Hydromorphone [From Dilaudid] Allergy (Verified 03/14/16 23:13) Hallucinating - Respiratory Orders Oxygen / L per min (Keep sats >90%) Smoking Cessation: Smoking cessation has been advised. For more information, call the [employer] Quit Line at 7-508-HVXS-NOW. - Ancillary Orders May consult with Dentist, Musician Instrumental, Nondestructive Tester PRN - Advance Directives Code Status: Full Code - Mobility Orders Ambulate (per PT) - Rehabiliation Orders Rehab Potential: Good Rehab Orders: Evaluation for Physical Therapy, Evaluation for Occupational Therapy - Treatments List/Other: Wound Care: cleanse bilateral lower legs with HCG soap and water - rinse well with water and pat dry - rest legs on Ultrasorb pads to absorb drainage - elevate legs on pillows - repeat twice daily - Diet Orders No Concentrated Sweets (and diabetic), Cardiac CERTIFICATION: I certify that the transfer of the above named patient to an Extended Care Facility is necessary for the continuing treatment of the diagnosis listed. The above information is true and accurate reflection of patient's current condition. Confidential - Redisclosure prohibited without a patient's written consent.
--- NOTE | 2016-07-25 10:46 | Physician Discharge Referral ---
Home Health/Hosp Referral Info Transfer to: Home Health Provider in Charge Post Discharge: PCP - Diagnosis (1) Cellulitis Priority: Primary Status: Acute (2) Diabetes Priority: Secondary Status: Chronic (3) HTN (hypertension) Priority: Secondary Status: Chronic (4) Morbid obesity Priority: Secondary Status: Chronic (5) Influenza B Priority: Secondary Status: Acute (6) COPD (chronic obstructive pulmonary disease) Priority: Secondary Status: Acute - Respiratory Orders Smoking Cessation: Smoking cessation has been advised. For more information, call the [place] [employer] Quit Line at 6-104-UKMU-NOW. - Diet/Nutrition Diet/Nutrition Orders: Cardiac, No Concentrated Sweets (and diabetic) - Activity Activity Orders: Walker - Services Needed Following services are medically necessary services: Nursing, Physical Therapy, Occupational Therapy - Transfer Medications Prescriptions: Butalb/Acetaminophen/Caffeine [Fioricet 50-300-40 mg Capsule] 1 each PO Q6HR PRN #10 capsule PRN Reason: Headache GuaiFENesin Liq [Robitussin Liq] 10 ml PO Q6HR PRN #200 mls PRN Reason: Cough Budesonide/Formoterol 80/4.5 [Symbicort 80/4.5] 1 puff IH BID #1 hfa.aer.ad Carvedilol 12.5 mg PO BID #60 tab Oseltamivir [Tamiflu] 75 mg PO BID #5 capsule Sulfamethoxazole/Trimeth DS [Bactrim DS] 1 each PO BID #20 tablet Home Medications: Cyanocobalamin (Vitamin B-12) [Vitamin B12] 1,000 mcg PO DAILY #0 01/22/15 [ History] Levothyroxine [Synthroid] 50 mcg PO DAILY 01/22/15 [History] Potassium Chloride [K-Tab ER] 10 meq PO DAILY #0 01/22/15 [History] Albuterol Sulfate [Proair Hfa] 2 puff IH Q6H PRN 11/12/15 [History] Allopurinol [Zyloprim 100 MG] 100 mg PO BID 11/12/15 [History] Ferrous Sulfate 325 mg PO TID 11/12/15 [History] Metformin [Glucophage] 1,000 mg PO BIDWM 01/29/16 [History] Atorvastatin [Lipitor] 10 mg PO DAILY 07/20/16 [History] Docusate [Colace] 100 mg PO DAILY PRN 07/20/16 [History] Furosemide [Lasix] 40 mg PO DAILY 07/20/16 [History] Budesonide/Formoterol 80/4.5 [Symbicort 80/4.5] 1 puff IH BID #1 hfa.aer.ad [Rx] Butalb/Acetaminophen/Caffeine [Fioricet 50-300-40 mg Capsule] 1 each PO Q6HR PRN #10 capsule 07/25/16 [Rx] Carvedilol 12.5 mg PO BID #60 tab 07/25/16 [Rx] GuaiFENesin Liq [Robitussin Liq] 10 ml PO Q6HR PRN #200 mls 07/25/16 [Rx] Oseltamivir [Tamiflu] 75 mg PO BID #5 capsule 07/25/16 [Rx] Sulfamethoxazole/Trimeth DS [Bactrim DS] 1 each PO BID #20 tablet 07/25/16 [Rx] Allergies/Adverse Reactions: Allergies Hydromorphone [From Dilaudid] Allergy (Verified 03/14/16 23:13) Hallucinating Certification: Further, I certify that my clinical findings support that this patient is homebound (i.e. absences from home require considerable and taxing effort and are for medical reasons or zoroastrian services or infrequently or short duration when for other reasons) because: Homebound Reason: Patient requires assistance of a person or device to safely leave home Attestation: My signature below is to certify that this patient is under my care and that I, or nurse practitioner, or a physician's front end assistant working with me, has a face-to -face encounter with this patient.
[2016-07-25] MEDS ORDERED: Aminoglycoside Consult 1 EACH MC ONE (13:30)
[2016-07-25] MEDS ORDERED: Levalbuterol Neb 1.25 MG/3 ML IH SCH (21:32)
== END 2016-07-25 13:31 | disposition home health service (06) | DRG 638 ==
LOC: 3NENU → SUATTDRO 11:09
PROVIDERS: ADMIT Internal Medicine Endocrinology, Diabetes & Metabolism; ATTEND Internal Medicine

== ENCOUNTER 2017-01-22 12:32 | Inpatient (IN) ==
[2017-01-22] MEDS ORDERED: Ondansetron 4 MG/2 ML VIAL IVP PRN (19:03)
[2017-01-22] MEDS ORDERED: Naloxone 0.4 MG/ML INJ IVP PRN (19:03)
--- NOTE | 2017-01-22 19:10 | Event Note ---
Date of Encounter: 01/22/17 Time of Encounter: 19:08 I independently obtained history and examined this patient and my medical decision-making was reviewed with the nurse practitioner, Tariq Christiansen. I agree with the documented findings, disposition and treatment plan as described. My findings are summarized below: She presented to the hospital because she injured her right chin while climbing and her trunk. On exam she has extensive lower extremity lymphedema and cellulitis of both lower extremities below the knees. Plan: We will treat her with Zosyn and clindamycin. I would avoid vancomycin and patient was 208 kg because it would take a long time and a high vancomycin doses to achieve therapeutic concentrations and would be too risky for her. We will obtain blood cultures follow-up sensitivities and adjust therapy accordingly. Full obtain lactic acid per sepsis protocol.
[2017-01-22] MEDS ORDERED: *HR* Dextrose 50 % in Water (Syg) 50 ML SYRINGE IVP PRN (19:14)
[2017-01-22] MEDS ORDERED: Dextrose Gel 15 GM PO PRN ×2 (19:14)
[2017-01-22] MEDS ORDERED: D5% in Water 1,000 ML IVC PRN (19:14)
[2017-01-22] MEDS ORDERED: 0.9 % Sodium Chloride 1,000 ML IVC ONE (19:21)
--- NOTE | 2017-01-22 19:39 | Internal Med History&Physical ---
<MakenzievirystewTariq fajardo - Last Filed: 01/22/17 20:33> Date of Encounter: 01/22/17 Time of Encounter: 18:00 Assessment and Plan (1) Sepsis Current visit: Yes Status: Acute Patient presents meeting SIRS criteria based on WBC of 19.7 and HR of 106 bpm. Suspected infection source is bilateral cellulitis of LEs. Lactic acid 3.1 on admission. Will order lactic acid stat + timed. Blood cultures x2. Patient received 1L bolus of IV 0.9 NS in [place] ED. Will bolus again with 1L and follow with 125 mL/HR. IVPB clindamycin 900 mg Q6 and Zosyn 3.375 gm Q8 ordered for infection coverage for cellulitis. Creatinine, bilirubin, platelets WNL. Patient is currently afebrile. F/u labs ordered. Patient placed on continuous cardiac telemetry and supplemental O2. Will monitor patient for signs of increasing infection, cardiac, and/or respiratory distress. Qualifiers: Sepsis type: sepsis due to unspecified organism Qualified Code(s): A41.9 - Sepsis, unspecified organism (2) Cellulitis Current visit: Yes Status: Acute Patient presents with chronic cellulitis of the bilateral LEs. Patient's legs are erythematous and edematous from the feet to the upper inner thighs. Legs are warm to the touch. Blood cultures x2 ordered. Wound Care consult and daily wound care ordered. IVPB clindamycin 900 mg Q6 and Zosyn 3.375 gm Q8 ordered for infection coverage. Monitor infection status in f/u labs. Will adjust abx coverage based on culture and sensitivity results. Will avoid vancomycin due to patient's weight of 208 kg and the time it will take to achieve therapeutic vancomycin levels. Qualifiers: Site of cellulitis: extremity Site of cellulitis of extremity: lower extremity Laterality: unspecified laterality Qualified Code(s): L03.119 - Cellulitis of unspecified part of limb (3) SOB (shortness of breath) Current visit: Yes Status: Acute Patient reports SOB most likely related to COPD dx. Patient denies hx of CHF but takes PO lasix. Patient states that she uses home O2 PRN but not regularly. Supplemental O2 with titration and continuous SpO2 monitoring. Will continue patient's Proair inhaler. DuoNebs Q6 scheduled. Monitor patient's respiratory status and VS. Will hold PO lasix and administer 40 mg IVP lasix BID. (4) Laceration of right lower extremity Current visit: Yes Status: Acute Patient reports cutting her leg last night while attempting to get into her car. She reports that the wound bled a lot. Wound Care consult and daily wound care ordered. IVPB abx ordered for cellulitis which will cover wound as well. Qualifiers: Encounter type: initial encounter Qualified Code(s): S81.811A - Laceration without foreign body, right lower leg, initial encounter (5) Thyroid disease Current visit: Yes Status: Chronic Hx of chronic thyroid disease. Will continue patient's Synthroid. (6) Chronic knee pain Current visit: Yes Status: Chronic Hx of chronic bilateral knee pain and weakness. Patient states she takes 400 mg Tylenol at home for pain and does not want hydrocodone or stronger pain medications. Tylenol 650 mg ordered Q6 PRN. Falls/safety precautions.. PT/OT consults ordered to assess patient for strength, stability, ambulation, and assistive needs for post-discharge planning. Qualifiers: Laterality: bilateral Qualified Code(s): M25.561 - Pain in right knee; M25.562 - Pain in left knee; M25.562 - Pain in left knee; G89.29 - Other chronic pain; G89.29 - Other chronic pain (7) COPD (chronic obstructive pulmonary disease) Current visit: Yes Status: Chronic Hx of chronic COPD. Patient reports she has never smoked and that she uses home O2 PRN but not regularly. Supplemental O2 with titration and continuous SpO2 monitoring. Will continue patient's Proair inhaler. DuoNebs Q6 scheduled. Monitor patient's respiratory status and VS. Qualifiers: COPD type: chronic bronchitis Chronic bronchitis type: simple Qualified Code(s): J41.0 - Simple chronic bronchitis (8) Diabetes Current visit: Yes Status: Chronic Hx of chronic diabetes controlled with insulin and oral antihyperglycemic medications. Patient currently takes Bydureon. Will hold Bydureon and Glyburide and administer low-dose correction insulin sliding scale and hypoglycemic protocol. BG checks ACHS. A1c ordered in a.m. labs. Qualifiers: Diabetes mellitus type: type 2 Diabetes mellitus complication status: with kidney complications Diabetes mellitus complication detail: with chronic kidney disease Diabetes mellitus custodial insulin use: unspecified custodial insulin use status Chronic kidney disease stage: stage 3 (moderate) Qualified Code(s): E11.22 - Type 2 diabetes mellitus with diabetic chronic kidney disease; N18.3 - Chronic kidney disease, stage 3 (moderate); N18.3 - Chronic kidney disease, stage 3 (moderate) (9) HTN (hypertension) Current visit: Yes Status: Chronic Hx of chronic HTN. Monitor patient and VS. Will continue Carvedilol. Qualifiers: Hypertension type: essential hypertension Qualified Code(s): I10 - Essential (primary) hypertension (10) HLD (hyperlipidemia) Current visit: Yes Status: Chronic Hx of chronic HLD. Lipid panel ordered in a.m. labs. We will continue patient' s Lipitor. Qualifiers: Hyperlipidemia type: pure hypercholesterolemia Qualified Code(s): E78.00 - Pure hypercholesterolemia, unspecified; E78.0 - Pure hypercholesterolemia (11) Anemia Current visit: Yes Status: Chronic Hx of chronic anemia. Patient's Hgb of 10.2 and Hct of 33.6 on admission which is improved from her levels in 07/25. Patient reports forgetting to take her afternoon dose of iron frequently. Will continue patient's B-12 and ferrous sulfate. Iron profile ordered. Will monitor H/H. Qualifiers: Anemia type: iron deficiency Iron deficiency anemia type: unspecified iron deficiency Qualified Code(s): D50.9 - Iron deficiency anemia, unspecified (12) DVT prophylaxis Current visit: Yes Status: Acute Heparin 5000 units SQ every 8 for DVT prophylaxis. Internal Medicine - H&P: HPI Chief complaint: Leg laceration/Bilateral LE cellulitis Admitted From: Intrahospital Transfer Plans for Post Hospital Care: Home History of present illness: Ms. Blanton is a 56 year old female with medical history of COPD, diabetes controlled with insulin and oral antihyperglycemic medications, hyperlipidemia, hypertension, and thyroid disease presents from [place] ED to [facility] chief complaint of leg laceration to the right lower leg and bilateral lower extremity cellulitis. Patient states laceration occurred last night at 9 PM. She reports that bilateral cellulitis has been chronic for the past several weeks. Patient also reports some shortness of breath, weakness in bilateral LEs, chronic knee pain, and severe bilateral pedal edema with +2 pitting. Patient denies recent illness, fever, chills, vomiting, nausea, headache, changes in vision, abdominal pain, numbness and tingling, neurological deficits, dizziness, lightheadedness, unusual bleeding, presyncope , or syncope. Past Med Surg Social Fam HX - Past Medical History Source: patient, old records reviewed Medical history: COPD, diabetes, hyperlipidemia, hypertension, thyroid disease, other Psychiatric history: no psych history - Past Surgical History Surgical History: hysterectomy (Total) - Social History Smoking Status: Never smoker Smokeless Tobacco Status: No Alcohol use: none Drug use: none Occupational status: previously employed Current living situation: Home, With Family Activity Level: Uses cane/walker Recent Out of Country Travel Within the Last 8 Weeks: No Exposure or Possible Exposure to Illness During Travel: No - Family History Mother Adopted: No Race: Family Member Ethnicity: Non- Living Status: Age at : 79 Cause of : Colon cancer Hx Family Cancer: Yes (Colon) Hx Family Endocrine Disorder: Yes (DM) Father Race: Family Member Ethnicity: Non- Living Status: Age at : 77 Cause of : OK Hx Family Cardiac Disorders: Yes (CAD, [place], Triple Bypass) Hx Family Endocrine Disorder: Yes (DM) Sister Race: Family Member Ethnicity: Non- Living Status: Age at : 18 Cause of : Surgical accident Internal Medicine - H&P: Meds Cyanocobalamin (Vitamin B-12) [Vitamin B12] 1,000 mcg PO DAILY #0 01/22/15 [ History] Levothyroxine [Synthroid] 50 mcg PO DAILY 01/22/15 [History] Potassium Chloride [K-Tab ER] 10 meq PO DAILY #0 01/22/15 [History] Albuterol Sulfate [Proair Hfa] 2 puff IH Q6H PRN 11/12/15 [History] Allopurinol [Zyloprim 100 MG] 100 mg PO BID 11/12/15 [History] Ferrous Sulfate 325 mg PO BID 11/12/15 [History] Atorvastatin [Lipitor] 10 mg PO DAILY 07/20/16 [History] Docusate [Colace] 100 mg PO DAILY PRN 07/20/16 [History] Furosemide [Lasix] 40 mg PO DAILY 07/20/16 [History] Carvedilol 12.5 mg PO BID #60 tab 07/25/16 [Rx] Exenatide Microspheres [Bydureon] 2 mg SQ QWEEK 01/22/17 [History] Ibuprofen [Motrin] 600 mg PO Q6HR PRN 01/22/17 [History] glipiZIDE [Glucotrol] 5 mg PO DAILY 01/23/17 [History] 3 Allergy/AdvReac Type Severity Reaction Status Date / Time Hydromorphone [From Dilaudid] Allergy Hallucinati Verified 03/14/16 23:13 ng All Systems PM: A 10-system review of systems was performed and is negative for pertinent findings except as documented above in the HPI. - Constitutional Constitutional: weakness (Bilateral LE weakness), no chills, no fever(s), no night sweats - EENT Eyes: no change in vision, no discharge, no pain, no photophobia Ears: no ear discharge, no ear pain, no tinnitus Nose, mouth and throat: no dysphagia, no nasal discharge, no neck pain, no sore throat - Breasts Breasts: as per HPI - Cardiovascular Cardiovascular ROS IM: as per HPI, dyspnea, dyspnea on exertion, no chest pain, no diaphoresis, no lightheadedness, no palpitations, no syncope - Respiratory Respiratory: as per HPI, dyspnea, dyspnea on exertion - Gastrointestinal Gastrointestinal: no abdominal pain, no diarrhea, no hematemesis, no hematochezia, no melena, no nausea, no vomiting - Genitourinary Genitourinary: no change in urinary stream, no dysuria, no flank pain, no hematuria Menstruation: post hysterectomy - Musculoskeletal Musculoskeletal ROS IM: as per HPI, arthralgias (Bilateral knees) - Integumentary Integumentary IM: erythema (Bilateral LEs d/t cellulitis), other (Cellulitis of bilateral LEs), no rash, no unusual bruising - Neurological Neurological ROS: no confusion, no convulsions, no focal weakness, no numbness, no tingling, no tremor(s) - Psychiatric Psychiatric: as per HPI - Endocrine Endocrine IM: as per HPI - Hematologic/Lymphatic Hematologic/Lymphatic: no easy bruising - Allergic/Immunologic Allergic/Immunologic: as per HPI - Constitutional Vitals: Temp Pulse Resp BP Pulse Ox 98.6 F 106 18 138/68 98 01/22/17 18:46 01/22/17 18:46 01/22/17 18:46 01/22/17 18:46 01/22/17 18:46 General appearance: Present: cooperative, A&O X 3, morbidly obese, pleasant, severe distress (D/T bilateral knee pain), answers questions appropriately - Head Head exam: Present: atraumatic, normocephalic - Eye Eye exam: Present: PERRL, conjuntiva pink, sclera anicteric Pupils: Present: PERRL - ENT ENT exam: Present: normal exam, normal external ear exam - Neck Neck exam general surgery: Present: normal inspection, supple, trachea midline. Absent: lymphadenopathy - Respiratory Respiratory exam: Present: accessory muscle use, decreased breath sounds, wheezes. Absent: rales, rhonchi - Cardiovascular Cardiovascular exam: Present: RRR, +S1, +S2. Absent: diastolic murmur, gallop, rubs, systolic murmur - GI/Abdominal GI/Abdominal exam: Present: normal bowel sounds, soft, no peritoneal signs. Absent: distended, tenderness - Rectal Rectal exam: Present: deferred - Additional comments: exam deferred. - Extremities Exam Extremities exam: Present: pedal edema, tenderness, warm - Back Exam Back exam: Present: normal inspection - Neurological Exam Neurological exam: Present: CN II-XII intact, oriented X3, no focal deficits. Absent: pronater drift, facial droop, speech deficit - Psychiatric Psychiatric exam: Present: normal affect, normal mood - Skin Skin exam: Present: dry, intact Internal Med - H&P Results - Diagnostic Studies Chest x-ray Additional comments: 1-View CXR today shows heart size and pulmonary vessels normal. Lungs clear. Costophrenic angles sharp. No active cardiopulmonary disease. <Terell Graham - Last Filed: 01/23/17 08:06> Date of Encounter: 01/22/17 Internal Medicine - H&P: HPI History of present illness: Ms. Blanton is a 56 year old female All Systems PM: A 10-system review of systems was performed and is negative for pertinent findings except as documented above in the HPI. - Constitutional Vitals: Temp Pulse Resp BP Pulse Ox 99.7 F H 95 19 95/55 95 01/23/17 03:45 01/23/17 03:45 01/23/17 03:45 01/23/17 03:45 01/23/17 03:45 Internal Med - H&P Results - Labs CBC & Chem 7: 01/23/17 02:42 01/23/17 02:42 Labs: Short CBC 01/23/17 Range/Units 02:42 WBC 19.5 H (4.3-11.1) K/mcL Hgb 8.7 L D (11.5-15.4) g/dL Hct 28.9 L (35.3-44.9) % Plt Count 176 (140-400) K/mcL Neutrophils # 18.2 H (1.6-8.9) K/mcL BMP 01/23/17 02:42 Sodium 134 L Potassium 3.7 Chloride 100 Carbon Dioxide 28 BUN 22 H Creatinine 1.21 H Glucose 138 H Calcium 8.4 L Cardiac Enzymes 01/22/17 01/23/17 Range/Units 19:58 02:42 Troponin I 0.03 0.01 (0-0.03) ng/mL Liver Function 01/22/17 01/23/17 Range/Units 19:58 02:42 Total Bilirubin 1.4 H D 1.3 H (0.2-1.2) mg/dL Direct Bilirubin 0.8 H (0.0-0.5) mg/dL AST 11 11 (5-34) Units/L ALT 9 7 (0-55) Units/L Alkaline Phosphatase 106 89 (38-126) Units/L Albumin 2.8 L 2.3 L (3.5-5.0) g/dL - Attending Attestation I independently obtained history and examined this patient and my medical decision-making was reviewed with the nurse practitioner, Tariq Christiansen. I agree with the documented findings, disposition and treatment plan as described. See event note for 01/22/2017
[2017-01-22 20:30] LABS: Albumin 2.8 g/dL (3.5-5.0); Albumin/Globulin Ratio 0.7 (1.1-2.2); Bilirubin,Direct 0.8 mg/dL (0.0-0.5); Bilirubin,Indirect 0.6 mg/dL (0.0-1.2); Bilirubin,Total 1.4 mg/dL (0.2-1.2); Globulin 4.1 g/dL (2.4-3.5); Total Protein 6.9 g/dL (6.0-8.3)
[2017-01-22] MEDS: Furosemide 40 MG/4 ML VIAL IVP SCH (21:20)
[2017-01-22] MEDS: Acetaminophen 325 MG TABLET PO PRN (21:23)
[2017-01-22] MEDS: Insulin LISPRO 300 UNITS/3 ML VIAL SQ SCH (21:23)
[2017-01-22] MEDS: Ipratropium/Albuterol Neb 3 ML IH SCH (21:23)
[2017-01-22] MEDS: Pantoprazole 40 MG VIAL IVP SCH (21:24)
[2017-01-22] MEDS: 0.9 % Sodium Chloride 1,000 ML IVC SCH (21:25)
[2017-01-23] MEDS: Clindamycin 900 MG/50 ML 900 MG/50 ML IV.SOLN IVPB SCH ×2 (00:08→06:13)
[2017-01-23] MEDS: Piperacillin/Tazobactam 3.375 GM in D5% in Water (Mini-Bag+) 100 ML IVPB SCH ×3 (00:11→17:01)
[2017-01-23] MEDS: *HR* Heparin 5,000 UNIT/ML VIAL SQ SCH ×3 (00:26→17:02)
[2017-01-23 02:49] LABS: Basophils % 0.2 %; Hematocrit 28.9 % (35.3-44.9); Hemoglobin 8.7 g/dL (11.5-15.4); Immature Granulocytes % 1.3 % (0-4); Lymphocytes # 0.6 K/mcL (0.6-4.6); Lymphocytes % 2.8 %; Mean Corpuscular HGB Conc 30.1 g/dL (31.6-35.5); Mean Corpuscular Hemoglobin 25.5 pg (28.0-33.3); Mean Corpuscular Volume 84.8 fL (83.0-100.0); Mean Platelet Volume 9.1 fL (9.4-12.4); Monocytes # 0.5 K/mcL (0.0-1.3); Monocytes % 2.5 %; Neutrophils # 18.2 K/mcL (1.6-8.9); Platelet Count 176 K/mcL (140-400); Red Blood Count 3.41 M/mcL (3.82-4.97); Red Cell Distribution Width 17.2 % (11.5-14.5); Segmented Neutrophils % 93.2 %
[2017-01-23 02:54] LABS: INR 1.7; Prothrombin Time 18.6 Seconds (9.4-12.1)
[2017-01-23 02:57] LABS: Activated Partial Thrombo Time 50.8 Seconds (26.0-36.0)
[2017-01-23 02:59] LABS: Hemoglobin A1C 5.3 %
[2017-01-23 03:06] LABS: % Iron Saturation 4 % (15-50); Albumin 2.3 g/dL (3.5-5.0); Albumin/Globulin Ratio 0.6 (1.1-2.2); Bilirubin,Total 1.3 mg/dL (0.2-1.2); Calcium 8.4 mg/dL (8.6-10.8); Chol/HDL Ratio 2.5 (0-4.9); Globulin 3.9 g/dL (2.4-3.5); Iron 8 mcg/dL (50-170); Magnesium 1.4 mg/dL (1.6-2.6); Potassium 3.7 mEq/L (3.5-4.5); Total Protein 6.2 g/dL (6.0-8.3); Transferrin 157 mg/dL (180-382)
[2017-01-23] MEDS: Ipratropium/Albuterol Neb 3 ML IH SCH ×3 (03:45→15:35)
[2017-01-23] MEDS: Levothyroxine 25 MCG TABLET PO SCH (06:12)
[2017-01-23] MEDS: Acetaminophen 325 MG TABLET PO PRN ×2 (06:12→17:07)
[2017-01-23] MEDS: Pantoprazole 40 MG VIAL IVP SCH (08:19)
[2017-01-23] MEDS: Furosemide 40 MG/4 ML VIAL IVP SCH ×2 (08:19→17:02)
[2017-01-23] MEDS: Insulin LISPRO 300 UNITS/3 ML VIAL SQ SCH ×4 (08:19→21:40)
[2017-01-23] MEDS: Lactobacillus 1 EACH CAP.SPRINK PO SCH (08:21)
[2017-01-23] MEDS: Cyanocobalamin (B-12) 1,000 MCG TABLET PO SCH (08:22)
[2017-01-23] MEDS ORDERED: Magnesium Sulfate 2 GM in D5% in Water 100 ML IVPB ONE (08:23)
[2017-01-23] MEDS: 0.9 % Sodium Chloride 1,000 ML IVC SCH ×2 (08:24→13:10)
[2017-01-23] MEDS ORDERED: 0.9 % Sodium Chloride 1,000 ML IVC ONE (09:39)
[2017-01-23] MEDS ORDERED: 0.9 % Sodium Chloride 500 ML IVC ONE (09:42)
--- NOTE | 2017-01-23 09:48 | Internal Med Progress Note ---
<Sonal Carvajal - Last Filed: 01/23/17 16:30> Date of Encounter: 01/23/17 Time of Encounter: 09:43 - Assessment and plan (1) Sepsis Current Visit: Yes Status: Acute Assessment and plan: Patient presented to the hospital from [place] ED meeting SIRS criteria: WBC 19.7 HR 106 lactic acid 3.1, and the source of infection is bilateral cellulitis of lower extremities with new laceration of right lower extremity. Currently WBC 19.7, HR 99 Afebrile. Lactic acid within normal limits. Patient reports chronic cellulitis of bilateral lower extremities -blood and wound cultures pending -Zosyn day 2 -clindamycin stopped -doxycycline started -IV bolus fluids -continuous cardiac telemetry Qualifiers: Qualified Code(s): A41.9 - Sepsis, unspecified organism (2) Cellulitis Current Visit: Yes Status: Acute Assessment and plan: see plan above Qualifiers: Site of cellulitis: extremity Site of cellulitis of extremity: lower extremity Laterality: unspecified laterality Qualified Code(s): L03.119 - Cellulitis of unspecified part of limb (3) SOB (shortness of breath) Current Visit: Yes Status: Acute Assessment and plan: Patient reported shortness of breath was likely due to COPD from secondhand smoking. Patient reports using home oxygen PRN. Patient denies congestive heart failure that takes lasix. Patient denies shortness of breath at this time however does state she has a cough is nonproductive Echo TTE showed LVEF 60%, indeterminate diastolic function, no pulmonary hypertension or valvular dysfunction. -Pro-air inhaler PRN -duo neb -continue Lasix IV (4) Laceration of right lower extremity Current Visit: Yes Status: Acute Assessment and plan: Patient reports cutting her leg while attempting to get into her truck. She reported a lot of blood loss. -Wound care consulted -patient reports having received tetanus vaccine in 2014 -IV antibiotics as above Qualifiers: Encounter type: initial encounter Qualified Code(s): S81.811A - Laceration without foreign body, right lower leg, initial encounter (5) Venous stasis dermatitis Current Visit: Yes Status: Acute Assessment and plan: Patient has significant chronic venous stasis dermatitis patient reports chronic bilateral knee pain and weakness -PT/OT consulted -Tylenol for pain management -social work consulted Qualifiers: Qualified Code(s): I87.2 - Venous insufficiency (chronic) (peripheral) (6) Diabetes Current Visit: Yes Status: Chronic Assessment and plan: History of diabetes controlled with insulin and oral anti-hyperglycemic medications low-dose insulin sliding scale Qualifiers: Diabetes mellitus type: type 2 Diabetes mellitus complication status: with kidney complications Diabetes mellitus complication detail: with chronic kidney disease Diabetes mellitus superintendent terminal insulin use: unspecified superintendent terminal insulin use status Chronic kidney disease stage: stage 3 (moderate) Qualified Code(s): E11.22 - Type 2 diabetes mellitus with diabetic chronic kidney disease; N18.3 - Chronic kidney disease, stage 3 (moderate); N18.3 - Chronic kidney disease, stage 3 (moderate) (7) COPD (chronic obstructive pulmonary disease) Current Visit: Yes Status: Chronic Assessment and plan: Patient reports history of chronic COPD from secondhand smoke exposure. She denies smoking history. She reports using home oxygen as needed -supplemental oxygen PRN -Duoneb PRN Qualifiers: COPD type: chronic bronchitis Chronic bronchitis type: simple Qualified Code(s): J41.0 - Simple chronic bronchitis (8) Anemia Current Visit: Yes Status: Chronic Assessment and plan: Patient reports history of chronic anemia. She frequently forgets to take her iron medication Hemoglobin is 8.7 no active bleeding -Monitor H&H -continue patients B-12 Ferrous sulfate Qualifiers: Anemia type: iron deficiency Iron deficiency anemia type: unspecified iron deficiency Qualified Code(s): D50.9 - Iron deficiency anemia, unspecified (9) DVT prophylaxis Current Visit: Yes Status: Acute Assessment and plan: Heparin SQ - Subjective Interval history: Patient is lying comfortably in bed she denies pain in her legs she admits a nonproductive cough she denies fever, chills, shortness of breath, chest pain - Constitutional Vitals: Temp Pulse Resp BP Pulse Ox 98.2 F 92 18 86/53 93 01/23/17 07:30 01/23/17 07:30 01/23/17 07:30 01/23/17 07:30 01/23/17 07:30 General appearance: Present: cooperative, A&O X 3, morbidly obese, pleasant, severe distress (D/T bilateral knee pain), answers questions appropriately Exam: Gen.: Vitals noted. No acute distress. AAOx3 HEENT: oropharynx clear, Normocephalic, atraumatic Cardiac: RRR, no murmur, +S1/S2 Pulmonary: CTA bilaterally, no wheezes, rales or rhonchi, equal chest expansion Abdomen: soft, nontender, Bowel sounds noted, no guarding MSK: ROM decreased lower extremity Extremities: +BLE edema, nontender calf, significant lymphedema bilaterally with cobble stoning lower extremities Psych: Appropriate mood and behavior Internal Medicine: Result - Labs CBC & Chem 7: 01/23/17 02:42 01/23/17 02:42 Labs: Short CBC 01/23/17 Range/Units 02:42 WBC 19.5 H (4.3-11.1) K/mcL Hgb 8.7 L D (11.5-15.4) g/dL Hct 28.9 L (35.3-44.9) % Plt Count 176 (140-400) K/mcL Neutrophils # 18.2 H (1.6-8.9) K/mcL BMP 01/23/17 02:42 Sodium 134 L Potassium 3.7 Chloride 100 Carbon Dioxide 28 BUN 22 H Creatinine 1.21 H Glucose 138 H Calcium 8.4 L Cardiac Enzymes 01/22/17 01/23/17 Range/Units 19:58 02:42 Troponin I 0.03 0.01 (0-0.03) ng/mL Liver Function 01/22/17 01/23/17 Range/Units 19:58 02:42 Total Bilirubin 1.4 H D 1.3 H (0.2-1.2) mg/dL Direct Bilirubin 0.8 H (0.0-0.5) mg/dL AST 11 11 (5-34) Units/L ALT 9 7 (0-55) Units/L Alkaline Phosphatase 106 89 (38-126) Units/L Albumin 2.8 L 2.3 L (3.5-5.0) g/dL - ABG Interpretation ABG results: PT/INR, D-dimer PT 18.6 Seconds (9.4-12.1) H 01/23/17 02:42 Consult Discharge Plan - Plan Referrals: Nathalie Rosales, PALLIATIVE SENIOR NP [Primary Care Provider] - <Betty Hardin - Last Filed: 01/23/17 17:49> Date of Encounter: 01/23/17 - Constitutional Vitals: Temp Pulse Resp BP Pulse Ox 98.7 F 99 18 127/72 96 01/23/17 15:16 01/23/17 15:16 01/23/17 15:37 01/23/17 15:16 01/23/17 15:37 Internal Medicine: Result - Labs CBC & Chem 7: 01/23/17 02:42 01/23/17 02:42 Labs: Short CBC 01/23/17 Range/Units 02:42 WBC 19.5 H (4.3-11.1) K/mcL Hgb 8.7 L D (11.5-15.4) g/dL Hct 28.9 L (35.3-44.9) % Plt Count 176 (140-400) K/mcL Neutrophils # 18.2 H (1.6-8.9) K/mcL BMP 01/23/17 02:42 Sodium 134 L Potassium 3.7 Chloride 100 Carbon Dioxide 28 BUN 22 H Creatinine 1.21 H Glucose 138 H Calcium 8.4 L Cardiac Enzymes 01/22/17 01/23/17 Range/Units 19:58 02:42 Troponin I 0.03 0.01 (0-0.03) ng/mL Liver Function 01/22/17 01/23/17 Range/Units 19:58 02:42 Total Bilirubin 1.4 H D 1.3 H (0.2-1.2) mg/dL Direct Bilirubin 0.8 H (0.0-0.5) mg/dL AST 11 11 (5-34) Units/L ALT 9 7 (0-55) Units/L Alkaline Phosphatase 106 89 (38-126) Units/L Albumin 2.8 L 2.3 L (3.5-5.0) g/dL - ABG Interpretation ABG results: PT/INR, D-dimer PT 18.6 Seconds (9.4-12.1) H 01/23/17 02:42 - Impressions Impressions Echocardiogram 01/23/17 19:16 Impressions: Technically challenging study with suboptimal windows. LVEF 60%. Definity was given. Normal left ventricular size and systolic function. Indeterminate diastolic function. RV is dilated. Probably normal RV function although image quality limits interpretation. No significant valvular dysfunction. No pulmonary hypertension. Left Ventricular Wall Motion: Rest Echo Findings All wall segments showed normal motion. Findings: Study Quality * Technically sub-optimal due to body habitus. ECG Findings * Normal sinus rhythm. Aorta * Not well visualized. Aortic Valve * No aortic regurgitation. * Aortic valve not well visualized. * No aortic stenosis. Mitral Valve * Normal mitral valve structure. * No mitral regurgitation. * No mitral stenosis. Tricuspid Valve * Tricuspid valve not well visualized. * Trace tricuspid regurgitation. Pulmonic Valve * Pulmonic valve is not well visualized. * No pulmonic stenosis. * No pulmonic regurgitation. Pulmonary Artery * Pulmonary artery not well visualized. Left Atrium * Normal left atrial size. Right Atrium * Normal right atrial size. Pericardium * There is no pericardial effusion present. Left Ventricle * Indeterminate diastolic function. * Definity echo contrast was used. * LVEF 60%. Right Ventricle * RV is dilated. Probably normal RV function although image quality limits interpretation. Interatrial Septum * Interatrial septum not well evaluated. IVC * The IVC is not well evaluated. - Attending Attestation I saw and examined the patient independently. I have discussed with resident Dr Carvajal regarding the management plan. Agree with the documentation. Patient was admitted for bilateral cellulitis, laceration on the right lower extremity. Patient has no active bleeding at this point. WBC is high. On doxycycline and Zosyn at this point for cellulitis. Continue closely monitor patient.
[2017-01-23] MEDS ORDERED: Perflutren Lipid Microsphere 1.3 ML in 0.9 % Sodium Chloride 8.7 ML IVP ONE (11:11)
[2017-01-23] MEDS ORDERED: Ipratropium/Albuterol Neb 3 ML IH PRN (16:38)
[2017-01-23] MEDS: Doxycycline 100 MG in 0.9 % Sodium Chloride Mini Bag 100 ML IVPB SCH (18:13)
[2017-01-23] MEDS: Miconazole 2% ointment 114 GM TUBE TP SCH (21:46)
[2017-01-24] MEDS: Piperacillin/Tazobactam 3.375 GM in D5% in Water (Mini-Bag+) 100 ML IVPB SCH ×3 (00:26→17:06)
[2017-01-24] MEDS: *HR* Heparin 5,000 UNIT/ML VIAL SQ SCH ×3 (00:27→16:04)
[2017-01-24] MEDS ORDERED: Menthol 9.1 MG LOZENGE PO PRN (03:16)
[2017-01-24 03:26] LABS: Basophils % 0.2 %; Eosinophils # 0.1 K/mcL (0.0-0.6); Eosinophils % 0.3 %; Hematocrit 28.8 % (35.3-44.9); Hemoglobin 8.7 g/dL (11.5-15.4); Immature Granulocytes % 1.3 % (0-4); Lymphocytes # 0.8 K/mcL (0.6-4.6); Mean Corpuscular HGB Conc 30.2 g/dL (31.6-35.5); Mean Corpuscular Hemoglobin 25.6 pg (28.0-33.3); Mean Corpuscular Volume 84.7 fL (83.0-100.0); Mean Platelet Volume 10.6 fL (9.4-12.4); Monocytes # 0.8 K/mcL (0.0-1.3); Monocytes % 4.9 %; Platelet Count 151 K/mcL (140-400); Red Cell Distribution Width 17.5 % (11.5-14.5); Segmented Neutrophils % 88.3 %
[2017-01-24 04:03] LABS: Albumin 2.4 g/dL (3.5-5.0); Albumin/Globulin Ratio 0.6 (1.1-2.2); Bilirubin,Total 1.1 mg/dL (0.2-1.2); Calcium 8.3 mg/dL (8.6-10.8); Globulin 4.2 g/dL (2.4-3.5); Potassium 4.1 mEq/L (3.5-4.5); Total Protein 6.6 g/dL (6.0-8.3)
[2017-01-24] MEDS: Levothyroxine 25 MCG TABLET PO SCH (06:00)
[2017-01-24] MEDS: Doxycycline 100 MG in 0.9 % Sodium Chloride Mini Bag 100 ML IVPB SCH ×2 (06:00→16:06)
[2017-01-24] MEDS: Acetaminophen 325 MG TABLET PO PRN (06:03)
[2017-01-24] MEDS: Insulin LISPRO 300 UNITS/3 ML VIAL SQ SCH ×4 (07:30→21:45)
--- NOTE | 2017-01-24 08:17 | Internal Med Progress Note ---
Date of Encounter: 01/24/17 Time of Encounter: 08:16 - Assessment and plan (1) Sepsis Current Visit: Yes Status: Acute Assessment and plan: Improving her blood cx 4/4 positive for Streptococci Cont Zosyn and Doxy # 3/10 Continuous cardiac telemetry Repeat blood cx no growth so far Qualifiers: Qualified Code(s): A41.9 - Sepsis, unspecified organism (2) Cellulitis Current Visit: Yes Status: Acute Assessment and plan: Slowly improving cont local wound care cont empirical abx Qualifiers: Site of cellulitis: extremity Site of cellulitis of extremity: lower extremity Laterality: unspecified laterality Qualified Code(s): L03.119 - Cellulitis of unspecified part of limb (3) Venous stasis dermatitis Current Visit: Yes Status: Acute Assessment and plan: Patient has significant chronic venous stasis dermatitis Will talk to wound care nurse to apply 3 layered LONG wraps for her chronic b/l LE lymph edema Also will start her on topical steroid + anti fungal cream Qualifiers: Qualified Code(s): I87.2 - Venous insufficiency (chronic) (peripheral) (4) Chronic respiratory failure with hypoxia Current Visit: Yes Status: Acute Assessment and plan: Stable Due to severe hypoventilation syndrome with severe obesity Pt does not wanted to use CPAP Will certified alcohol counselor her again Cont duoneb (5) Morbid (severe) obesity with alveolar hypoventilation Current Visit: Yes Status: Acute Assessment and plan: counseled to loose weight May get benefit with gastric bypass (6) Diabetes Current Visit: Yes Status: Chronic Assessment and plan: Cont ISS Qualifiers: Diabetes mellitus type: type 2 Diabetes mellitus complication status: with kidney complications Diabetes mellitus complication detail: with chronic kidney disease Diabetes mellitus mcc insulin use: unspecified emt intermediate insulin use status Chronic kidney disease stage: stage 3 (moderate) Qualified Code(s): E11.22 - Type 2 diabetes mellitus with diabetic chronic kidney disease; N18.3 - Chronic kidney disease, stage 3 (moderate); N18.3 - Chronic kidney disease, stage 3 (moderate) (7) HTN (hypertension) Current Visit: Yes Status: Chronic Assessment and plan: Stable with home meds.. resumed Coreg Qualifiers: Hypertension type: essential hypertension Qualified Code(s): I10 - Essential (primary) hypertension (8) Acute renal failure (ARF) Current Visit: No Status: Chronic Assessment and plan: Due tp aggressive diuresis Held IV lasix..changed to PO Lasix 40mg daily Qualifiers: Acute renal failure type: unspecified Qualified Code(s): N17.9 - Acute kidney failure, unspecified (9) Laceration of right lower extremity Current Visit: Yes Status: Acute Assessment and plan: Patient reports cutting her leg while attempting to get into her truck. She reported a lot of blood loss. Wound care on board patient reports having received tetanus vaccine in 2013 Qualifiers: Encounter type: initial encounter Qualified Code(s): S81.811A - Laceration without foreign body, right lower leg, initial encounter (10) Lymphedema of both lower extremities Current Visit: Yes Status: Chronic Assessment and plan: Need to f/u with wound care / Lymphedema clinic 3 layer wraps (11) DVT prophylaxis Current Visit: Yes Status: Acute Assessment and plan: Heparin SQ - Subjective Interval history: Ms. Blanton is a 56 year old female with medical history of COPD, diabetes controlled with insulin and oral antihyperglycemic medications, hyperlipidemia, hypertension, and thyroid disease presents from [facility] to [facility] chief complaint of leg laceration to the right lower leg and bilateral lower extremity cellulitis. Pt was started on empirical abx Zosyn and Doxy. Her swelling and Redness slightly better today. She does have chronic lymphedema in both legs. Pt denied any CP. her SOB is also seems to be at baseline today. - Constitutional Vitals: Temp Pulse Resp BP Pulse Ox 98.7 F 97 18 109/58 93 01/24/17 07:12 01/24/17 07:12 01/24/17 07:12 01/24/17 07:12 01/24/17 07:12 General appearance: Present: cooperative, A&O X 3, morbidly obese, pleasant, answers questions appropriately - Head Head exam: Present: atraumatic, normal inspection - Respiratory Respiratory exam: Present: decreased breath sounds, wheezes (mild to moderate). Absent: rales, respiratory distress, rhonchi - Cardiovascular Cardiovascular exam: Present: RRR, +S1, +S2. Absent: systolic murmur - GI/Abdominal GI/Abdominal exam: Present: distended, normal bowel sounds, soft. Absent: rebound, rigid, tenderness - Extremities Exam Extremities exam: Present: pedal edema, tenderness, warm Additional comments: Diffuse edema and circumferential erythema noticed in both legs from ankle to knee. A laceration over Rt leg posteriorly noticed with out any discharge - Neurological Exam Neurological exam: Present: alert, oriented X3 - Psychiatric Psychiatric exam: Present: normal affect, normal mood Internal Medicine: Result - Labs CBC & Chem 7: 01/24/17 02:47 01/24/17 02:47 Labs: Short CBC 01/24/17 Range/Units 02:47 WBC 15.8 H (4.3-11.1) K/mcL Hgb 8.7 L (11.5-15.4) g/dL Hct 28.8 L (35.3-44.9) % Plt Count 151 (140-400) K/mcL Neutrophils # 14.0 H (1.6-8.9) K/mcL BMP 01/24/17 02:47 Sodium 135 L Potassium 4.1 Chloride 101 Carbon Dioxide 23 BUN 32 H D Creatinine 1.53 H Glucose 128 H Calcium 8.3 L Liver Function 01/24/17 Range/Units 02:47 Total Bilirubin 1.1 (0.2-1.2) mg/dL AST 13 (5-34) Units/L ALT 9 (0-55) Units/L Alkaline Phosphatase 108 (38-126) Units/L Albumin 2.4 L (3.5-5.0) g/dL - ABG Interpretation ABG results: PT/INR, D-dimer PT 18.6 Seconds (9.4-12.1) H 01/23/17 02:42 - Impressions Impressions Echocardiogram 01/23/17 19:16 Impressions: Technically challenging study with suboptimal windows. LVEF 60%. Definity was given. Normal left ventricular size and systolic function. Indeterminate diastolic function. RV is dilated. Probably normal RV function although image quality limits interpretation. No significant valvular dysfunction. No pulmonary hypertension. Left Ventricular Wall Motion: Rest Echo Findings All wall segments showed normal motion. Findings: Study Quality * Technically sub-optimal due to body habitus. ECG Findings * Normal sinus rhythm. Aorta * Not well visualized. Aortic Valve * No aortic regurgitation. * Aortic valve not well visualized. * No aortic stenosis. Mitral Valve * Normal mitral valve structure. * No mitral regurgitation. * No mitral stenosis. Tricuspid Valve * Tricuspid valve not well visualized. * Trace tricuspid regurgitation. Pulmonic Valve * Pulmonic valve is not well visualized. * No pulmonic stenosis. * No pulmonic regurgitation. Pulmonary Artery * Pulmonary artery not well visualized. Left Atrium * Normal left atrial size. Right Atrium * Normal right atrial size. Pericardium * There is no pericardial effusion present. Left Ventricle * Indeterminate diastolic function. * Definity echo contrast was used. * LVEF 60%. Right Ventricle * RV is dilated. Probably normal RV function although image quality limits interpretation. Interatrial Septum * Interatrial septum not well evaluated. IVC * The IVC is not well evaluated. Consult Discharge Plan - Plan Referrals: Nathalie Rosales, ECG TECHNICIAN [Primary Care Provider] -
[2017-01-24] MEDS: Miconazole 2% ointment 114 GM TUBE TP SCH ×2 (08:32→21:45)
[2017-01-24] MEDS: Lactobacillus 1 EACH CAP.SPRINK PO SCH (08:37)
[2017-01-24] MEDS: Furosemide 40 MG TABLET PO SCH (08:37)
[2017-01-24] MEDS: Famotidine 20 MG TABLET PO SCH ×2 (08:39→21:45)
[2017-01-24] MEDS: Cyanocobalamin (B-12) 1,000 MCG TABLET PO SCH (08:39)
[2017-01-25] MEDS: Piperacillin/Tazobactam 3.375 GM in D5% in Water (Mini-Bag+) 100 ML IVPB SCH ×2 (00:42→10:13)
[2017-01-25] MEDS: *HR* Heparin 5,000 UNIT/ML VIAL SQ SCH ×2 (00:44→10:14)
[2017-01-25] MEDS: Doxycycline 100 MG in 0.9 % Sodium Chloride Mini Bag 100 ML IVPB SCH (05:39)
[2017-01-25] MEDS: Levothyroxine 25 MCG TABLET PO SCH (05:40)
[2017-01-25 06:49] LABS: Hematocrit 29.2 % (35.3-44.9); Mean Corpuscular Volume 87.2 fL (83.0-100.0); Red Blood Count 3.35 M/mcL (3.82-4.97); Red Cell Distribution Width 17.2 % (11.5-14.5)
[2017-01-25 06:50] LABS: Basophils # 0.1 K/mcL (0.0-0.2); Basophils % 0.6 %; Eosinophils # 0.2 K/mcL (0.0-0.6); Eosinophils % 1.3 %; Hemoglobin 8.5 g/dL (11.5-15.4); Immature Granulocytes % 0.8 % (0-4); Mean Corpuscular HGB Conc 29.1 g/dL (31.6-35.5); Mean Corpuscular Hemoglobin 25.4 pg (28.0-33.3); Mean Platelet Volume 9.9 fL (9.4-12.4); Monocytes % 7.9 %; Neutrophils # 10.1 K/mcL (1.6-8.9); Platelet Count 179 K/mcL (140-400); Segmented Neutrophils % 81.4 %
[2017-01-25 06:59] LABS: Albumin 2.3 g/dL (3.5-5.0); Albumin/Globulin Ratio 0.5 (1.1-2.2); Bilirubin,Total 0.7 mg/dL (0.2-1.2); Calcium 8.8 mg/dL (8.6-10.8); Globulin 4.4 g/dL (2.4-3.5); Potassium 3.8 mEq/L (3.5-4.5); Total Protein 6.7 g/dL (6.0-8.3)
[2017-01-25 08:01] VITALS: BP 113/72
[2017-01-25 08:04] LABS: Platelet Estimate Normal (Normal)
[2017-01-25] MEDS ORDERED: Clotrimazole/Betameth Dip CRM 45 APPL/45 GM TUBE TP SCH (09:15)
--- NOTE | 2017-01-25 09:38 | Discharge Summary ---
Date of Encounter: 01/25/17 Time of Encounter: 09:31 - Discharge Diagnosis (1) Sepsis Priority: Primary Status: Acute Qualifiers: Qualified Code(s): A41.9 - Sepsis, unspecified organism (2) Cellulitis Priority: Primary Status: Acute Qualifiers: Site of cellulitis: extremity Site of cellulitis of extremity: lower extremity Laterality: unspecified laterality Qualified Code(s): L03.119 - Cellulitis of unspecified part of limb (3) Venous stasis dermatitis Priority: Primary Status: Acute Qualifiers: Qualified Code(s): I87.2 - Venous insufficiency (chronic) (peripheral) (4) Chronic respiratory failure with hypoxia Priority: Secondary Status: Acute (5) Morbid (severe) obesity with alveolar hypoventilation Priority: Secondary Status: Acute (6) Diabetes Priority: Secondary Status: Chronic Qualifiers: Diabetes mellitus type: type 2 Diabetes mellitus complication status: with kidney complications Diabetes mellitus complication detail: with chronic kidney disease Diabetes mellitus correction insulin use: unspecified exterminator helper insulin use status Chronic kidney disease stage: stage 3 (moderate) Qualified Code(s): E11.22 - Type 2 diabetes mellitus with diabetic chronic kidney disease; N18.3 - Chronic kidney disease, stage 3 (moderate); N18.3 - Chronic kidney disease, stage 3 (moderate) (7) HTN (hypertension) Priority: Secondary Status: Chronic Qualifiers: Hypertension type: essential hypertension Qualified Code(s): I10 - Essential (primary) hypertension (8) Acute renal failure (ARF) Priority: Secondary Status: Chronic Qualifiers: Acute renal failure type: unspecified Qualified Code(s): N17.9 - Acute kidney failure, unspecified (9) Laceration of right lower extremity Priority: Primary Status: Acute Qualifiers: Encounter type: initial encounter Qualified Code(s): S81.811A - Laceration without foreign body, right lower leg, initial encounter (10) Lymphedema of both lower extremities Priority: Secondary Status: Chronic (11) DVT prophylaxis Priority: Secondary Status: Acute - Discharge Medications Prescriptions: Amoxicillin/Clavulanate [Augmentin] 875 mg PO BIDWM #14 tablet Clotrimazole/Betameth Dip CRM [Lotrisone CRM] 1 appl TP BID 15 Days tube Home Medications: Cyanocobalamin (Vitamin B-12) [Vitamin B12] 1,000 mcg PO DAILY #0 01/22/15 [ History] Levothyroxine [Synthroid] 50 mcg PO DAILY 01/22/15 [History] Potassium Chloride [K-Tab ER] 10 meq PO DAILY #0 01/22/15 [History] Albuterol Sulfate [Proair Hfa] 2 puff IH Q6H PRN 11/12/15 [History] Allopurinol [Zyloprim 100 MG] 100 mg PO BID 11/12/15 [History] Ferrous Sulfate 325 mg PO BID 11/12/15 [History] Atorvastatin [Lipitor] 10 mg PO DAILY 07/20/16 [History] Docusate [Colace] 100 mg PO DAILY PRN 07/20/16 [History] Furosemide [Lasix] 40 mg PO DAILY 07/20/16 [History] Carvedilol 12.5 mg PO BID #60 tab 07/25/16 [Rx] Exenatide Microspheres [Bydureon] 2 mg SQ QWEEK 01/22/17 [History] glipiZIDE [Glucotrol] 5 mg PO DAILY 01/23/17 [History] Acetaminophen [Tylenol] 650 mg PO Q6HR PRN tablet 01/25/17 [Rx] Amoxicillin/Clavulanate [Augmentin] 875 mg PO BIDWM #14 tablet 01/25/17 [Rx] Clotrimazole/Betameth Dip CRM [Lotrisone CRM] 1 appl TP BID 15 Days tube [Rx] Allergies/Adverse Reactions: 3 Allergy/AdvReac Type Severity Reaction Status Date / Time Hydromorphone [From Dilaudid] Allergy Hallucinati Verified 03/14/16 23:13 ng Procedures/tests Complete & Pending: Procedures Performed prior 72 hours Category Date Time Status ECG 12 lead ECG [ECG] Routine Y 01/24/17 10:20 Completed EV echocardiogram w enhance Stat Y 01/23/17 19:16 Completed Date of admission: 01/22/17 19:03 Primary care physician: Nathalie Rosales CNP Consults: 01/22/17 19:07 Consult to Physical Therapy [CONS] Routine Comment: Evaluate, develop and implement POC Reason for Consult: Patient reports difficulty ambulating and steadiness on her feet. Please assess for strength, stability, ambulation, and assistive needs for post-discharge planning. 01/22/17 19:09 Consult to Occupational Therapy [CONS] Routine Comment: Evaluate, develop and implement POC Reason for Consult: Patient reports difficulty ambulating and steadiness on her feet. Please assess for strength, stability, ambulation, and assistive needs for post-discharge planning. Consult to Cafeteria Monitor [CONS] Routine Reason for SW Consult: Assess patient for home needs for post-discharge planning. 01/22/17 19:18 Consult to Wound Care [CONS] Routine Reason for Consult: Patient has laceration of right leg that will require wound care Call Completed: No - Patient Status Disposition: Home, Self-Care Condition: Fair Overall status at discharge: patient is back to baseline - Discharge Instructions Follow Up With: Nathalie Rosales CNP [Primary Care Provider] - Additional Instructions: Need to f/u with PCP in one week Need to f/u at wound care clinic in one week - Diet and Activity Activity: increase activity as tolerated Diet: low salt diet Hospital course: Ms. Blanton is a 56 year old female with medical history of COPD, diabetes controlled with insulin and oral antihyperglycemic medications, hyperlipidemia, hypertension, and thyroid disease presents from [place] [facility] to [facility] chief complaint of leg laceration to the right lower leg and bilateral lower extremity cellulitis. Pt was admitted in the hospital and started on empirical abx Zosyn and Doxy. Also placed her on topical anti fungal cream. Her blood cx grew Group G streptococci. Her repeated blood cx did not grow any bacteria. Her wound cx in the past grew same Grop G strep and aviles sensitive Proteus. Her swelling and Redness better today and seems to be at baseline as per pt. She does have chronic lymphedema in both legs. Pt denied any CP. her SOB is also seems to be at baseline today. Pt was seen by PT / OT who cleared her to go home with out any needs. Will d/c her home today in stable condition with PO Abx Augmentin for 7 more days. Also recommend to f/u with PCP and at Wound care clinic in one week. - Time Spent with Patient Total time spent providing and/or coordinating discharge services: - Constitutional Vitals: Temp Pulse Resp BP Pulse Ox 98.1 F 77 19 113/72 98 01/25/17 08:00 01/25/17 08:00 01/25/17 08:00 01/25/17 08:00 01/25/17 08:00 General appearance: Present: cooperative, A&O X 3, morbidly obese, pleasant, answers questions appropriately - Head Head exam: Present: atraumatic, normal inspection - Neck Neck exam general surgery: Present: supple - Respiratory Respiratory exam: Present: decreased breath sounds, wheezes (mild). Absent: rales, respiratory distress, rhonchi - Cardiovascular Cardiovascular exam: Present: RRR, +S1, +S2. Absent: systolic murmur - GI/Abdominal GI/Abdominal exam: Present: distended, normal bowel sounds, soft. Absent: rebound, rigid, tenderness - Extremities Exam Extremities exam: Present: pedal edema. Absent: calf tenderness, tenderness Additional comments: Diffuse edema and circumferential erythema noticed in both legs from ankle to knee. A healed laceration over Rt leg posteriorly noticed with out any discharge - Neurological Exam Neurological exam: Present: alert, oriented X3 - Psychiatric Psychiatric exam: Present: normal affect, normal mood
[2017-01-25] MEDS: Insulin LISPRO 300 UNITS/3 ML VIAL SQ SCH (10:03)
[2017-01-25] MEDS: Lactobacillus 1 EACH CAP.SPRINK PO SCH (10:13)
[2017-01-25] MEDS: Cyanocobalamin (B-12) 1,000 MCG TABLET PO SCH (10:13)
[2017-01-25] MEDS: Famotidine 20 MG TABLET PO SCH (10:13)
[2017-01-25] MEDS: Furosemide 40 MG TABLET PO SCH (10:13)
[2017-01-25] MEDS: Acetaminophen 325 MG TABLET PO PRN (10:23)
== END 2017-01-25 14:43 | disposition home or self-care (01) | DRG 872 ==
LOC: 3ANU → SUATTDRO 19:03 → 3ANU 01-23 22:08
PROVIDERS: ADMIT Internal Medicine; ATTEND Family Medicine